=== PATIENT | female | born 1930 | race Caucasian/White ===

== ENCOUNTER 2018-06-24 18:00 | Inpatient (IN) ==
[2018-06-24] MEDS ORDERED: MethylPREDNISolone Sod Succinate Inj 40 MG/ML Vial IV.PUSH ONE (18:36)
[2018-06-24] MEDS ORDERED: Piperacil/Tazo 2.25 GM Premix 2.25 GM/50 ML PIGGYBACK IV.SIG SCH (18:45)
--- NOTE | 2018-06-24 19:13 | XR ---
EXAM DATE: 06/24/2018 7:08 PM EST AGE/SEX: 88 years / Female INDICATIONS: Shortness of breath. CLINICAL DATA: This is the patient's initial encounter. Patient reports that signs and symptoms have been present for 2 days and indicates a pain score of 0/10. MEDICAL/SURGICAL HISTORY: None. None. COMPARISON: No prior exams available for comparison. FINDINGS: Single AP view the chest. There is prominent volume loss on the right with shift of the mediastinum t o the right and extensive mixed hazy and linear opacity. Mild patchy left lung base opacity. Calcifie d granuloma in the left midlung. Cardiomediastinal silhouette within normal limits. No evidence of pl eural effusion or pneumothorax. CONCLUSION: Volume loss and moderate severity patchy opacity in the right lung is nonspecific. 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 An acute component is also possible. Mild patchy opacity at the left lung base. Electronically signed by: Jagdeep Marti MD Board Certified Radiologist 06/24/2018 7:12 PM EST
[2018-06-24 19:24] LABS: Baso % (Auto) 0.2 % (0.0-2.0); Hemoglobin 13.8 gm/dL (11.6-15.3); Lymph # (Auto) 1.2 th/mm3 (1.0-4.8); Lymph % (Auto) 5.6 % (9.0-44.0); Mean Corpuscular HGB Conc 32.8 % (32.0-36.0); Mean Corpuscular Hemoglobin 32.6 pg (27.0-34.0); Mean Corpuscular Volume 99.4 fL (80.0-100.0); Mean Platelet Volume 8.8 fL (7.0-11.0); Mono # (Auto) 1.9 th/mm3 (0.0-0.9); Mono % (Auto) 9.1 % (0.0-8.0); Neut # (Auto) 17.6 th/mm3 (1.8-7.7); Neut % (Auto) 85.1 % (16.0-70.0); Platelet Count 335 th/mm3 (150-450); Red Blood Count 4.22 mil/mm3 (4.00-5.30); Red Cell Distribution Width 13.4 % (11.6-17.2); White Blood Count 20.7 th/mm3 (4.0-11.0)
--- NOTE | 2018-06-24 19:33 | ED ---
HPI General Chief Complaint: Shortness of Breath/Dyspnea Stated Complaint: vertigo Time Seen by Provider: 06/24/18 18:36 History of Present Illness This patient presents acutely short of breath. Duration is 2 days. She says she is coughing up thick colored phlegm. She is a DNR patient. Symptoms are severe. She arrives critically ill. No alleviating factors. No exacerbating factors. Room air saturations are in the 50s. Patient was given Zosyn 2.25 g IV by ED physician. I spoke with Dr. Turner, her private physician. Cefepime 1 g IV. Zithromax 500 mg IV. Patient will be admitted to [facility] telemetry with oxygen and IV antibiotic. Related Data Home Medications Medication Instructions Recorded Confirmed alprazolam 0.25 mg PO BID PRN 05/19/18 06/24/18 aspirin [Aspir-81] 1 tab PO DAILY 05/19/18 06/24/18 calcium carbonate-vitamin D3 1 tab PO BID 05/19/18 06/24/18 [Calcium 600 + D(3)] cholecalciferol (vitamin D3) 2,000 unit PO DAILY 05/19/18 06/24/18 [Vitamin D3] denosumab [Prolia] 1 % SUBCUT [id number] 05/19/18 06/24/18 folic acid 1 mg PO DAILY 05/19/18 06/24/18 losartan 100 mg PO DAILY 05/19/18 06/24/18 simvastatin 40 mg PO QPM 05/19/18 06/24/18 B-complex with vitamin C [Super B 1 tab PO DAILY 06/24/18 06/24/18 Complex-Vitamin C] biotin 5,000 mcg PO DAILY 06/24/18 06/24/18 calcium citrate-vitamin D3 2 tab PO DAILY 06/24/18 06/24/18 [Citracal + D Maximum] urktjida-[id number]-[id number]-C-odilon-bosw 2 tab PO DAILY 06/24/18 06/24/18 [Osteo Bi-Flex Triple Strength] ibuprofen 200 mg PO Q4-6H PRN 06/24/18 06/24/18 omega 0-qvx-cql-fish oil [Fish Oil] 1,200 mg PO DAILY 06/24/18 06/24/18 Allergies Allergy/AdvReac Type Severity Reaction Status Date / Time No Known Allergies Allergy Verified 06/24/18 19:06 Review of Systems ROS: all other systems reviewed are negative [facility] Medical History Medical History Anxiety (Acute) Colonic polyp (Acute) Depression (Acute) Diverticulosis (Acute) FH: carotid endarterectomy (Acute) H/O: lung cancer (Acute) Hypertension (Acute) Osteoporosis (Acute) Stroke (Acute) Social History Social History Substance History: No History of Abuse Smoking Status: Former smoker How Often Do You Have a Drink Containing Alcohol: 2 to 4 times a month Recent Travel in [facility] within the Last 8 Weeks: No Recent Out of Country Travel within the Last 8 Weeks: No Immunization History Tetanus Immunization: Unsure Exam Narrative Exam Narrative: GENERAL: Thin elderly well-developed patient in respiratory distress. SKIN: Focused skin assessment reveals no rash and nodules. Skin is Warm and dry. HEAD: Atraumatic. Normocephalic. EYES: Pupils equal and round. No scleral icterus. No injection or drainage. ENT: No nasal bleeding or discharge. Mucous membranes pink and moist. NECK: Trachea midline. No JVD. CARDIOVASCULAR: Regular rate and rhythm. No murmur appreciated. Tachycardic in the 120s RESPIRATORY: Positive accessory muscle use. Diminished breath sounds throughout . Breath sounds equal bilaterally. GASTROINTESTINAL: Abdomen soft, non-tender, nondistended. Hepatic and splenic margins not palpable. MUSCULOSKELETAL: No obvious deformities. No clubbing. No cyanosis. No edema. NEUROLOGICAL: Awake and alert. No obvious cranial nerve deficits. Motor grossly within normal limits. Normal speech. PSYCHIATRIC: Appropriate mood and affect; insight and judgment normal. Course Initial Documented Vital Signs Pulse Rate 130 H 06/24/18 18:17 Respiratory Rate 30 H 06/24/18 18:17 Blood Pressure 161/83 H 06/24/18 18:17 Pulse Oximetry 52 L 06/24/18 18:17 Last Documented Vital Signs Temperature 99.7 F H 06/24/18 18:23 Pulse Rate 110 H 06/24/18 18:46 Respiratory Rate 24 06/24/18 18:46 Blood Pressure 161/83 H 06/24/18 18:23 Pulse Oximetry 96 06/24/18 19:38 Medical Decision Making MDM Narrative Medical decision making narrative: Workup ordered in case checked at the Dr. Roach as the patient came in right before shift end. 3-year-old white1:06 PM. Patient was seen by ED physician and signed out to me. Medical Screen Exam Complete: Yes Emergency Medical Condition: Yes Lab Data Lab results reviewed: Yes I reviewed the patient's lab results. Result diagrams: 06/24/18 18:53 06/24/18 18:53 Lab Results 06/24/18 06/24/18 Range/Units 18:53 18:53 WBC 20.7 H (4.0-11.0) th/mm3 RBC 4.22 (4.00-5.30) mil/mm3 Hgb 13.8 (11.6-15.3) gm/dL Hct 42.0 (35.0-46.0) % MCV 99.4 (80.0-100.0) fL MCH 32.6 (27.0-34.0) pg MCHC 32.8 (32.0-36.0) % RDW 13.4 (11.6-17.2) % Plt Count 335 (150-450) th/mm3 MPV 8.8 (7.0-11.0) fL Prelim Diff (Auto) Slide review pending Neut % (Auto) 85.1 H (16.0-70.0) % Lymph % (Auto) 5.6 L (9.0-44.0) % [place] % (Auto) 9.1 H (0.0-8.0) % Eos % (Auto) 0.0 (0.0-4.0) % Baso % (Auto) 0.2 (0.0-2.0) % Neut # (Auto) 17.6 H (1.8-7.7) th/mm3 Lymph # (Auto) 1.2 (1.0-4.8) th/mm3 [place] # (Auto) 1.9 H (0.0-0.9) th/mm3 Eos # (Auto) 0.0 (0.0-0.4) th/mm3 Baso # (Auto) 0.0 (0.0-0.2) th/mm3 WBC Differential . Diff Scan Auto diff confirmed Differential Comment . Sodium 139 (136-145) meq/L Potassium 4.3 (3.5-5.1) meq/L Chloride 101 (98-107) meq/L Carbon Dioxide 30.2 (21.0-32.0) meq/L Anion Gap 8 (5-15) meq/L BUN 40 H (7-18) mg/dL Creatinine 1.25 H (0.50-1.00) mg/dL Estimated GFR 41 L (>89) mL/min Random Glucose 193 H (74-106) mg/dL Calcium 10.1 (8.5-10.1) mg/dL Total Bilirubin 0.6 (0.2-1.0) mg/dL AST 39 H (15-37) U/L ALT 41 (10-53) U/L Alkaline Phosphatase 95 (45-117) U/L Total Protein 7.1 (6.4-8.2) g/dL Albumin 2.9 L (3.4-5.0) g/dL Imaging Data Attestation: I personally reviewed and interpreted this imaging study as follows : Radiologist's impression: Chest X-Ray 06/24/18 18:37 CONCLUSION: Volume loss and moderate severity patchy opacity in the right lung is nonspecific. May represent chronic lung disease/scarring. An acute component is also possible. Mild patchy opacity at the left lung base. Discharge Plan Discharge Disposition Patient Disposition: ED Admit(ED Internal Use Only) Discharge Order Discharge Orders: ED Use Only Admit Order (Routine); Ordered 06/24/18 Ordered By: Eduardo Roach Discharge Details Diagnosis: Community acquired pneumonia, Hypoxemia, Renal insufficiency Physicians Team ED Provider: Ruben Villalba Primary Care Provider: Claude Turner Rxs /Orders / Referrals /Forms Prescriptions: No Action ibuprofen 200 mg Capsule 200 mg PO Q4-6H PRN (Reason: Pain) RF: 0 B-complex with vitamin C [Super B Complex-Vitamin C] Tablet 1 tab PO DAILY RF: 0 calcium citrate-vitamin D3 [Citracal + D Maximum] 315-250 mg-unit Tablet 2 tab PO DAILY RF: 0 akfiaysr-xytm-jnb0-C-odilon-bosw [Osteo Bi-Flex Triple Strength] 750 mg-644 mg- 30 mg-1 mg Tablet 2 tab PO DAILY RF: 0 omega 9-bub-bmi-fish oil [Fish Oil] 1,000 mg (120 mg-180 mg) Capsule 1,200 mg PO DAILY RF: 0 biotin 5,000 mcg PO DAILY RF: 0 calcium carbonate-vitamin D3 [Calcium 600 + D(3)] 600 mg(1,500mg) -200 unit Tablet 1 tab PO BID RF: 0 aspirin [Aspir-81] 81 mg Tablet,Delayed Release (Dr/Ec) 1 tab PO DAILY RF: 0 simvastatin 40 mg Tablet 40 mg PO QPM RF: 0 alprazolam 0.25 mg Tablet 0.25 mg PO BID PRN (Reason: Anxiety) RF: 0 folic acid 1 mg Tablet 1 mg PO DAILY RF: 0 losartan 100 mg Tablet 100 mg PO DAILY RF: 0 cholecalciferol (vitamin D3) [Vitamin D3] 2,000 unit Tablet 2,000 unit PO DAILY RF: 0 denosumab [Prolia] 60 mg/mL Syringe 1 % subcut [id number] RF: 0 Discharge Interventions Interventions: Vital Signs Last Done: 06/24/18 18:23 Status ED Status: Admitted Patient
[2018-06-24 19:43] LABS: Albumin 2.9 g/dL (3.4-5.0); Anion Gap 8 meq/L (5-15); Aspartate Aminotransferase 39 U/L (15-37); Blood Urea Nitrogen 40 mg/dL (7-18); Calcium 10.1 mg/dL (8.5-10.1); Carbon Dioxide 30.2 meq/L (21.0-32.0); Chloride 101 meq/L (98-107); Glomerular Filtration Rate 41 mL/min (>89); Glucose,Random 193 mg/dL (74-106); Potassium 4.3 meq/L (3.5-5.1); Sodium 139 meq/L (136-145)
[2018-06-24 19:44] LABS: Alanine Aminotransferase 41 U/L (10-53)
[2018-06-24 19:47] LABS: Alkaline Phosphatase 95 U/L (45-117); Total Protein 7.1 g/dL (6.4-8.2)
[2018-06-24] MEDS ORDERED: Azithromycin Inj 500 MG in Sodium Chlor 0.9% Inj 250 ML IV.SIG ONE (21:08)
[2018-06-24] MEDS ORDERED: Bisacodyl 10 MG Supp RECTAL PRN (22:08)
[2018-06-24] MEDS ORDERED: Acetaminophen 325 MG Tablet PO PRN (22:08)
[2018-06-24] MEDS ORDERED: Sod Chloride 0.9% Inj 1,000 ML IV.SIG SCH (22:23)
[2018-06-24] MEDS: Sod Chloride 0.9% Inj 1,000 ML IV.CONT SCH (23:27)
--- NOTE | 2018-06-25 00:43 | MH ---
cc: Claude Turner MD DATE OF ADMISSION: 06/24/2018 ADMITTING DIAGNOSIS: Hypoxemia pneumonia. HISTORY OF PRESENT ILLNESS: This 88-year-old white female well known to the undersigned physician has a history of COPD and lung cancer. She underwent SBRT for lung cancer over 5 years ago and has had no evidence of any recurrence. The patient presented to the emergency department this evening complaining of shortness of breath and was found to have an oxygen saturation of 52%. The patient reports that she was not feeling well yesterday, but there were no specific symptoms. She states that she has little recollection of the last 24 hours. She denies any URI symptoms including no sore throat, nasal congestion, head congestion, persistent cough, or sputum production. She had no fever or chills. She states that her bowels have been moving well. She has had no diarrhea, constipation, abdominal pain. Her appetite has been chronically fair and she states it had not changed as much as she can remember. The patient normally has normal oxygen saturations and has never required supplemental oxygen. She denies any lateralizing deficits, any headaches, any visual changes, any nausea or vomiting. 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 She has hypertension, hyperlipidemia, depression, anxiety, history of colonic polyp. She had lung cancer in 2012, for which she underwent SBRT. She had 1 recurrence, which was treated and she has had no subsequent evidence of any recurrent disease. The patient has carotid stenosis, diverticulosis, and osteoporosis. PAST SURGICAL HISTORY: Significant for a carotid endarterectomy and she is status post bilateral cataract removal with lens implants. CURRENT MEDICATIONS: Calcium with vitamin D 600 mg twice daily, simvastatin 40 mg daily, alprazolam 0.25 mg 1/2 to 1 tablet 4 times a day as needed for anxiety, Prolia inject 60 mg/mL 1 mL subcutaneously every 6 months, aspirin 81 mg daily, vitamin D 2000 IU daily, losartan 100 mg daily, folic acid 1 mg daily. ALLERGIES: SHE HAS NO KNOWN DRUG ALLERGIES. FAMILY HISTORY: Noncontributory. SOCIAL HISTORY: She is . She lives alone. She occasionally consumes alcohol on a social basis. She smoked 1 pack of cigarettes a day for over 50 years, but quit in 1999. She is retired. She has no local family. IMMUNIZATION HISTORY: She received an influenza immunization in March 2018 at [facility] through the auxiliary, and pneumococcal vaccination was performed on 02/26/2015. REVIEW OF SYSTEMS: Unobtainable except as above, due to the patient's memory deficit. PHYSICAL EXAMINATION: VITAL SIGNS: Upon arrival to the emergency department, the patient's blood pressure was 161/83 with a heart rate of 130, respirations were 30, temperature was 99.7 degrees Fahrenheit, oxygen saturation was 52% on room air. At the current time, the patient's blood pressure is 136/60 with a heart rate of 120, respirations are 30, oxygen saturation is 96% on a nonrebreather mask. GENERAL: This is a thin, frail, elderly white female lying in bed, appearing fatigued, in hope-dg-cauuohxo respiratory distress. HEENT: The pupils are equal, round, and reactive to light. Extraocular movements are intact. Sclerae are anicteric. There are bilateral lens implants in place. Mouth and throat reveal moist mucous membranes. No erythema, exudates, and dentition is good. NECK: Supple without lymphadenopathy, JVD, bruits, or thyromegaly. CARDIOVASCULAR: Regular rate and rhythm with tachycardia. LUNGS: Reveal poor air exchange bilaterally. There are expiratory wheezes. No definite rales are heard. There are a few upper airway rhonchi when the patient is coughing. ABDOMEN: Soft, nontender, nondistended with bowel sounds present. No masses palpable hepatosplenomegaly. GENITOURINARY AND RECTAL: Deferred. LOWER EXTREMITIES: Reveal no edema, no calf tenderness. No Lottie sign. 2+ pulses. SKIN: Warm and dry. NEUROLOGIC: The patient is awake and alert. She is oriented to person, place, but not to time. Speech is intact. Cranial nerves are intact. No lateralizing deficits. She does have some short-term memory deficits of the events of the last 24 hours, which is unusual for this patient. No delusions or hallucinations. She is anxious at this time. LABORATORY DATA: Comprehensive metabolic profile significant for a BUN of 40, creatinine of 1.25, glucose was 193. AST mildly elevated at 39, but ALT of 41, albumin low at 2.9. The white blood cell count 20.7 with hemoglobin 13.8, hematocrit 40.2, platelet count was 335,000. White blood count differential showed 85.1 polys, 5.6 lymphocytes, and 9.1 monocytes. DIAGNOSTIC DATA: The chest x-ray reveals volume loss and moderate-severe patchy opacity in the right lung, which is nonspecific. This may represent chronic lung disease and scarring. An acute component is also possible. Mild patchy opacity in the left lung base. ASSESSMENT AND PLAN: 1. This 88-year-old white female presented with hypoxemia, and chest x-ray findings are suspicious for pneumonia. The patient also had a low-grade temperature elevation at this time. She received 3 nebulizer treatments in the emergency department and was given intravenous Solu-Medrol. Her oxygen saturations have improved, but she remains on 100% nonrebreather, which we will plan to admit the patient to medical/surgical bed with telemetry. She will be placed on intravenous antibiotics, intravenous steroids, and nebulizer treatments. We will provide supplemental oxygen and we will wean the oxygen as tolerated. The patient has previously expressed that she is NO CODE and has no desire to be intubated nor does she wish any aggressive resuscitation if cardiac arrest occurs. She will be made NO CODE. Blood cultures were obtained. We will follow up blood cultures and adjust antibiotic coverage as needed. The patient is not coughing at this time. If she begins to produce sputum, we will try to obtain a sputum specimen for culture. 2. Chronic obstructive pulmonary disease. The patient's chronic obstructive pulmonary disease has been exacerbated by the pneumonia. She also has a history of lung cancer. Previous x-rays have revealed a chronic patchy opacity in the right lung santos. We will obtain a CT scan of the chest to better delineate between chronic scarring versus acute infiltrate. 3. Acute renal failure. The patient's BUN and creatinine are significantly higher than they normally are. Her creatinine tends to run around 0.75. I suspect she has intravascular volume depletion from the acute illness. We will provide her with intravenous fluids and follow her renal function closely. 4. History of anxiety. We will provide the patient with alprazolam as needed. She does not tolerate selective serotonin reuptake inhibitors or serotonin and norepinephrine reuptake inhibitors, which were tried in the past with significant side effects. 5. Carotid stenosis. The patient did recently undergo a CT angiography of the carotid arteries, which showed high-grade stenosis in the right internal carotid artery. She will continue with aspirin 81 mg daily. Once the respiratory status has improved, we will need to consider further evaluation by vascular surgery. 6. History of cerebrovascular accident. The patient has had essentially no residual deficits. We will continue with the aspirin at 81 mg daily. 7. Hyperlipidemia. Continue with simvastatin 40 mg daily. 8. History of osteoporosis. We will hold calcium and vitamin D for now and resume when the patient is more stable. 9. Hypertension. The patient normally receives losartan. We will continue with losartan at 100 mg daily. Monitor blood pressure. Adjust medication as needed. 10. Tachycardia. The patient has a sinus tachycardia, likely due to the acute illness. She has intravascular volume depletion as well. We will provide an intravenous fluid bolus, which should help with the heart rate. We will avoid use of beta blockers due to the possibility of exacerbating her bronchospasm. If necessary, provide additional medication to control heart rate. Claude Turner MD JRM/eb/do , 10:39 PM , 10:56 PM
[2018-06-25] MEDS: MethylPREDNISolone Sod Succinate Inj 40 MG/ML Vial IV.PUSH SCH ×3 (05:11→21:16)
[2018-06-25 06:39] LABS: Eos % (Auto) 0.1 % (0.0-4.0); Hematocrit 34.2 % (35.0-46.0); Lymph # (Auto) 0.7 th/mm3 (1.0-4.8); Mean Corpuscular Hemoglobin 34.1 pg (27.0-34.0); Mean Corpuscular Volume 97.3 fL (80.0-100.0); Mean Platelet Volume 8.5 fL (7.0-11.0); Mono # (Auto) 0.4 th/mm3 (0.0-0.9); Mono % (Auto) 2.7 % (0.0-8.0); Neut # (Auto) 15.3 th/mm3 (1.8-7.7); Neut % (Auto) 93.2 % (16.0-70.0); Platelet Count 249 th/mm3 (150-450); Red Blood Count 3.52 mil/mm3 (4.00-5.30); White Blood Count 16.4 th/mm3 (4.0-11.0)
[2018-06-25 07:04] LABS: Calcium 8.9 mg/dL (8.5-10.1); Carbon Dioxide 30.3 meq/L (21.0-32.0)
[2018-06-25] MEDS ORDERED: Dextrose 50% in Water 50 ML Vial IV.PUSH PRN (09:56)
[2018-06-25] MEDS: Sod Chloride 0.9% Inj 1,000 ML IV.CONT SCH ×2 (09:56→20:40)
[2018-06-25] MEDS ORDERED: ALPRAZolam 0.25 MG Tablet PO PRN (10:15)
[2018-06-25] MEDS: Docusate Sodium 100 MG Capsule PO SCH ×2 (11:42→20:38)
[2018-06-25] MEDS: Insulin NovoLOG Aspart Correctional Sugar Inj SQ SCH ×3 (12:42→20:38)
--- NOTE | 2018-06-25 13:16 | CT ---
EXAM DATE: 06/25/2018 1:10 PM EST AGE/SEX: 88 years / Female INDICATIONS: Hypoxemia, Low Grade Fever CLINICAL DATA: This is the patient's initial encounter. Patient reports that signs and symptoms have been present for 1 day and indicates a pain score of 0/10. MEDICAL/SURGICAL HISTORY: Carcinoma, lung. Hypertension. Chronic obstructive pulmonary disease. N one. RADIATION DOSE: 3.36 CTDI (mGy) COMPARISON: No prior exams available for comparison. TECHNIQUE: Multiple contiguous axial images were obtained through the chest without contrast. Image s were obtained in suspended respiration using multiple row detector helical technique. Using automa sarah exposure control and adjustment of the mA and/or kV according to patient size, radiation dose was kept as low as reasonably achievable to obtain optimal diagnostic quality images. DICOM format imag e data is available electronically for review and comparison. FINDINGS: Patient has a history of lung carcinoma. There is a masslike density in the right middle lobe measure s 4.4 cm in size with surrounding parenchymal infiltrate. There is a separate area of spiculated dens ity right upper lobe anteromedial measures 1.3 cm in size. Additional areas of parenchymal infiltrate s are seen in right lower lobe, left lower lobe part of them have the appearance of scar. There is al so slight scarring within lingula. There are small lymph nodes within the mediastinum most likely cal ign. There is no appreciable pleural effusion for technique. Heart and mediastinum are unremarkable. There is old rib fracture on the right. Coronary artery calcifications are seen typically seen with coronary artery disease and clinical correlation and evaluation is suggested. Chronic vascular ather osclerotic calcifications are seen involving the aorta. Extensive COPD is seen. CONCLUSION: There is a mass in right middle lobe could be malignant or possibly posttreatment change with a separate spiculated mass right upper lobe anteromedial suspicious for underlying malignancy. A dditional parenchymal infiltrates are seen bilaterally may represent pneumonia. Electronically signed by: Mary Jane Licona MD Board Certified Radiologist 06/25/2018 1:15 PM EST
--- NOTE | 2018-06-25 14:16 | ECG ---
Date Performed: 06/24/2018 Time Performed: 18:26:27 PTAGE: 88 years EKG: SINUS TACHYCARDIA LEFT ATRIAL ENLARGEMENT BORDERLINE RIGHT AXIS DEVIATION LOW QRS VOLTAGE I N EXTREMITY LEADS Compared to previous tracing, HR is faster, otherwise no significant change ABNORMA L ECG PREVIOUS TRACING : 05/06/2000 14.00 DOCTOR: Jimenez Hong Interpretating Date/Time 06/25/2018 14:15:46
[2018-06-25] MEDS ORDERED: Azithromycin Inj 500 MG in Sodium Chlor 0.9% Inj 250 ML IV.SIG SCH (19:00)
[2018-06-26] MEDS: MethylPREDNISolone Sod Succinate Inj 40 MG/ML Vial IV.PUSH SCH ×3 (05:02→22:20)
[2018-06-26 05:36] LABS: Hematocrit 35.6 % (35.0-46.0); Hemoglobin 11.5 gm/dL (11.6-15.3); Lymph # (Auto) 0.6 th/mm3 (1.0-4.8); Lymph % (Auto) 2.6 % (9.0-44.0); Mean Corpuscular HGB Conc 32.5 % (32.0-36.0); Mean Corpuscular Hemoglobin 32.4 pg (27.0-34.0); Mean Platelet Volume 8.2 fL (7.0-11.0); Mono # (Auto) 0.8 th/mm3 (0.0-0.9); Mono % (Auto) 3.4 % (0.0-8.0); Neut # (Auto) 20.6 th/mm3 (1.8-7.7); Platelet Count 271 th/mm3 (150-450); Red Blood Count 3.56 mil/mm3 (4.00-5.30); Red Cell Distribution Width 13.3 % (11.6-17.2); White Blood Count 21.9 th/mm3 (4.0-11.0)
[2018-06-26 06:04] LABS: Calcium 8.3 mg/dL (8.5-10.1); Carbon Dioxide 27.7 meq/L (21.0-32.0)
[2018-06-26 06:18] LABS: Lymphocytes 1 % (9-44); Monocytes 2 % (0-8); Platelet Estimate Normal (Normal); Platelet Morphology Normal (Normal)
[2018-06-26] MEDS: Insulin NovoLOG Aspart Correctional Sugar Inj SQ SCH ×4 (07:39→20:24)
--- NOTE | 2018-06-26 09:19 | P.PN ---
Subjective Interval history: The patient reports that she is comfortable on oxygen at 3 L/min per nasal cannula. She is having some moist cough but no sputum production. Appetite is been fair. No bowel movement since prior to admission. Has not been out of bed. Denies any chest pain, palpitations, lightheadedness or dizziness. Active Medications Generic Name Dose Route Start Last Admin Trade Name Freq PRN Reason Stop Dose Admin Acetaminophen 650 mg 06/24/18 22:08 Tylenol PO Q4H PRN Temp > 100.4 Al Hydroxide/Mg Hydroxide 30 ml 06/24/18 22:08 Milk Of Magnesia Liq PO Q12H PRN Mild Constipation Albuterol 1 ampul 06/24/18 22:30 06/26/18 09:01 Duoneb Neb (Ally) NEB 1 ampul Q6HR NEB ALLY Administration Alprazolam 0.25 mg 06/25/18 10:15 Xanax PO Q8H PRN ANXIETY AND/OR AGITATION Aspirin 81 mg 06/25/18 09:00 06/25/18 09:55 Ecotrin PO 81 mg DAILY ALLY Administration Bisacodyl 10 mg 06/24/18 22:08 Dulcolax Supp RECTAL DAILY PRN SEVERE CONSITIPATION Dextrose 50 ml 06/25/18 09:56 D50w Vial IV.PUSH UNSCH PRN PER HYPOGLYCEMIA PROTOCOL Docusate Sodium 100 mg 06/25/18 10:30 06/25/18 20:38 Colace PO 100 mg BID ALLY Administration Glucagon 1 mg 06/25/18 09:56 Glucagon Inj OTHER PRN PRN for Hypoglycemia Protocol Sodium Chloride 1,000 mls @ 75 mls/hr 06/24/18 22:15 06/25/18 20:40 Ns Inj IV.CONT 75 mls/hr .[id number] ALLY Administration Azithromycin 500 mg/ Sodium 250 mls @ 250 mls/hr 06/25/18 19:00 06/25/18 19: 30 Chloride IV.SIG Infused Q24H LALY Infusion Cefepime HCl 1,000 mg/ Sodium 100 mls @ 200 mls/hr 06/25/18 09:00 06/25/18 22 :55 Chloride IV.SIG Infused Q12H [facility]Y Infusion Insulin Aspart 0 unit 06/25/18 12:00 06/26/18 07:39 Novolog Insulin Correctional Sugar Inj SQ Not Given ACHS ALLY Protocol Losartan Potassium 100 mg 06/24/18 22:45 06/25/18 09:55 Cozaar PO 100 mg DAILY ALLY Administration Methylprednisolone Sodium Succinate 40 mg 06/25/18 06:00 06/26/18 05:02 Solumedrol Inj IV.PUSH 40 mg Q8HR ALLY Administration Pravastatin Sodium 80 mg 06/25/18 18:00 06/25/18 18:08 Pravachol PO 80 mg QPM ALLY Administration Sennosides 17.2 mg 06/24/18 22:08 Senokot PO Q12H PRN Moderate Constipation Sodium Chloride 2 ml 06/25/18 09:00 06/25/18 20:38 Ns Flush IV.FLUSH Not Given BID ALLY Sodium Chloride 2 ml 06/24/18 22:08 Ns Flush IV.FLUSH PRN PRN FLUSH AFTER USING IV ACCESS Physical Exam Vital signs: Vital Signs 06/25/18 09:38 06/25/18 12:00 06/25/18 16:00 Temperature 97.6 F 97.6 F Pulse Rate 93 H 107 H 103 H Respiratory Rate 16 15 Blood Pressure 105/54 L 123/60 Pulse Oximetry 95 91 L 90 L 06/25/18 16:46 06/25/18 20:00 06/25/18 20:36 Temperature 97.8 F Pulse Rate 101 H 102 H 100 H Respiratory Rate 16 22 18 Blood Pressure 97/54 L Pulse Oximetry 95 95 06/26/18 00:00 06/26/18 03:32 06/26/18 04:00 Temperature 97.2 F L 97.4 F L Pulse Rate 99 H 76 96 H Respiratory Rate 20 14 22 Blood Pressure 93/51 L 103/53 L Pulse Oximetry 91 L 95 06/26/18 09:03 Temperature Pulse Rate 101 H Respiratory Rate 16 Blood Pressure Pulse Oximetry 93 L Intake & Output 06/25/18 06/26/18 06/26/18 18:59 06:59 18:59 Intake Total 810 / 810 1350 / 1350 Balance 810 / 810 1350 / 1350 Weight 101 lb 6.602 oz Intake: IV 810 / 810 1350 / 1350 NS Inj 1,000 ML @ 75 mls/hr IV. 710 / 710 1000 / 1000 CONT .[id number] [facility] Rx#:[id number] Azithromycin Inj 500 MG In NS 250 / 250 Inj 250 ML @ 250 mls/hr IV.SIG Q24H [facility] Rx#:[id number] Maxipime Inj 1,000 MG In NS Inj 100 / 100 100 / 100 100 ML @ 200 mls/hr IV.SIG Q12H [facility] Rx#:[id number] - Constitutional no acute distress - Routine Neck Exam Present: supple Comments: No lymphadenopathy, JVD or thyromegaly. Trachea midline - Routine Respiratory Exam Comments: Moderately severe reduced air exchange bilaterally without wheezes, rhonchi or rales - Routine Cardiovascular Exam Present: RRR - Routine Abdominal Exam Present: soft Comments: Mild distention, bowel sounds present, no masses, no HSM, no CVAT - Routine Extremities Exam Comments: No calf tenderness or Homans sign. No edema. Results - Labs CBC & Chem 7: 06/26/18 05:00 06/26/18 05:00 Laboratory Results - last 24 hr 06/25/18 06/25/18 06/25/18 11:44 17:14 19:35 WBC RBC Hgb Hct MCV MCH MCHC RDW Plt Count MPV Prelim Diff (Auto) Neut % (Auto) Lymph % (Auto) [place] % (Auto) Eos % (Auto) Baso % (Auto) Neut # (Auto) Lymph # (Auto) [place] # (Auto) Eos # (Auto) Baso # (Auto) WBC Differential Seg Neuts % (Manual) Band Neuts % (Manual) Lymphocytes % (Manual) Monocytes % (Manual) Abs Neuts (Manual) Differential Comment Platelet Estimate Platelet Morphology Sodium Potassium Chloride Carbon Dioxide Anion Gap BUN Creatinine Estimated GFR POC Glucose 158 H 201 H 163 H Random Glucose Calcium 06/26/18 06/26/18 06/26/18 05:00 05:00 07:36 WBC 21.9 H RBC 3.56 L Hgb 11.5 L Hct 35.6 MCV 100.0 MCH 32.4 MCHC 32.5 RDW 13.3 Plt Count 271 MPV 8.2 Prelim Diff (Auto) Slide review pending Neut % (Auto) 94.0 H Lymph % (Auto) 2.6 L [place] % (Auto) 3.4 Eos % (Auto) 0.0 Baso % (Auto) 0.0 Neut # (Auto) 20.6 H Lymph # (Auto) 0.6 L [place] # (Auto) 0.8 Eos # (Auto) 0.0 Baso # (Auto) 0.0 WBC Differential Manual diff final Seg Neuts % (Manual) 84 H Band Neuts % (Manual) 13 H Lymphocytes % (Manual) 1 L Monocytes % (Manual) 2 Abs Neuts (Manual) 21.2 H Differential Comment . Platelet Estimate Normal Platelet Morphology Normal Sodium 144 Potassium 4.0 Chloride 111 H Carbon Dioxide 27.7 Anion Gap 5 BUN 45 H Creatinine 0.84 Estimated GFR 64 L POC Glucose 128 H Random Glucose 124 H Calcium 8.3 L Microbiology 06/24/18 18:48 Blood - Peripheral Aerobic Blood Culture - Preliminary No growth in 1 day 06/24/18 18:48 Blood - Peripheral Anaerobic Blood Culture - Preliminary No growth in 1 day 06/24/18 18:53 Blood - Peripheral Aerobic Blood Culture - Preliminary No growth in 1 day 06/24/18 18:53 Blood - Peripheral Anaerobic Blood Culture - Preliminary No growth in 1 day - Imaging Impressions Chest CT 06/25/18 00:00 CONCLUSION: There is a mass in right middle lobe could be malignant or possibly posttreatment change with a separate spiculated mass right upper lobe anteromedial suspicious for underlying malignancy. Additional parenchymal infiltrates are seen bilaterally may represent pneumonia. Assessment and Plan - Assessment (1) Pneumonia Code(s): J18.9 - Pneumonia, unspecified organism Status: Acute Plan: The CT scan of the chest revealed infiltrates within the right lung, however, evidence of possible recurrence of lung cancer. White blood count remains elevated despite IV antibiotics. Will consult infectious disease for assistance with management of antibiotics. Continue with nebulizer treatments and steroids. (2) COPD with acute exacerbation Code(s): J44.1 - Chronic obstructive pulmonary disease with (acute) exacerbation Status: Acute Plan: Continue with steroids and nebulizer treatments. Continue with submental oxygen and wean as tolerated (3) Personal history of malignant neoplasm of lung Code(s): Z85.118 - Personal history of other malignant neoplasm of bronchus and lung Status: Chronic Plan: CT scan is suspicious for recurrent malignancy. I have discussed the findings with the patient. She will need further evaluation including possible biopsy but will need to improve pneumonia first. She previously underwent SBRT several years ago for the malignancy. (4) Hypertension Code(s): I10 - Essential (primary) hypertension Status: Chronic Plan: Blood pressure is low. Discontinue losartan. Resume antihypertensive therapy if needed (5) Hyperlipidemia Code(s): E78.5 - Hyperlipidemia, unspecified Status: Acute Plan: Continue statin therapy (6) Altered mental status Code(s): R41.82 - Altered mental status, unspecified Status: Acute Plan: The patient has had new onset short-term memory deficits which could be related to acute delirium, however, will obtain MRI of the brain to rule out the possibility of metastatic disease affecting mental status. (7) Carotid stenosis Code(s): I65.29 - Occlusion and stenosis of unspecified carotid artery Status : Chronic Plan: The patient has a history of high-grade carotid stenosis which was recently identified by CTA. She will continue on aspirin therapy. Plan was for vascular surgery consultation but will need to wait until patient is medically improved. (8) Hyperglycemia Code(s): R73.9 - Hyperglycemia, unspecified Status: Acute Plan: Blood sugars are elevated. Patient has a history of impaired fasting glucose blood glucose levels are higher due to use of steroids and acute illness. Receiving sliding scale insulin as needed. (1) Pneumonia Qualifiers: Pneumonia type: due to unspecified organism Laterality: right Lung location : unspecified part of lung Qualified Code(s): J18.9 - Pneumonia, unspecified organism (4) Hypertension Qualifiers: Hypertension type: essential hypertension Qualified Code(s): I10 - Essential (primary) hypertension (5) Hyperlipidemia Qualifiers: Hyperlipidemia type: mixed hyperlipidemia Qualified Code(s): E78.2 - Mixed hyperlipidemia (6) Altered mental status Qualifiers: Altered mental status type: unspecified Qualified Code(s): R41.82 - Altered mental status, unspecified
[2018-06-26] MEDS: Docusate Sodium 100 MG Capsule PO SCH ×2 (09:59→20:29)
--- NOTE | 2018-06-26 13:01 | P.CONID ---
History of Present Illness Service: Infectious Disease Consult date: 06/26/18 Requesting Physician: Claude Turner Reason for Consult: Evaluation and Mment of Persistent leucocytosis, Pneumonia Primary Care Provider: Claude Turner MD History of Present Illness: is a 88 y/o CM with PMHx of chronic smoking, active smoker, Past history of Lung cancer s/p treatment at [facility] (radiation plus/- chemotherapy) in 2010. She was reportedly in remission until recently when her CXRs were reported as abnormal in the right side of imaging.She had a PET scan which was abnormal as well. She reports she has been told she has COPD but is not on home oxygen. She reports being active until Feb 2018 and plays golf. She had right shoulder bursitis due to which she slowed down. Upon discussion with she has lost some weight over last few months but her appetite seems ok. 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 She was last seen by Oncology at [facility] possibly in 2012. She denies any cough with expectoration, Chest pain. She denies any fever or night sweats. she denies exposure to any sick people. ID consulted for evaluation and Mment of Pneumonia. Review of Systems All other systems reviewed negative except as [facility] - History History Provided By: Patient, Medical Record - Medical History Medical History: Medical History (Last Reviewed 06/27/18 @ 08:50 by Fang Bob) Anxiety Colonic polyp Depression Diverticulosis FH: carotid endarterectomy H/O: lung cancer Hypertension Osteoporosis Stroke - Tobacco History Second Hand Smoke Exposure: No Smoking Status: Former smoker - Alcohol History How Often Do You Have a Drink Containing Alcohol: Monthly or less - Substance Use History Substance History: No History of Abuse - Travel History Recent Travel in the [place] Within the Last 8 Weeks: No Recent Travel Out of the Country Within the Last 8 Weeks: No - Immunization History Tetanus Immunization: Unsure Medications and Allergies Active Medications: Active Medications Acetaminophen (Tylenol) 650 mg PO Q4H PRN PRN Reason: Temp > 100.4 Al Hydroxide/Mg Hydroxide (Milk Of Magnnash Liq) 30 ml PO Q12H PRN PRN Reason: Mild Constipation Albuterol (Duoneb Neb (Ally)) 1 ampul NEB Q6HR NEB ALLY Last Admin: 06/26/18 09:01 Dose: 1 ampul Alprazolam (Xanax) 0.25 mg PO Q8H PRN PRN Reason: ANXIETY AND/OR AGITATION Aspirin (Ecotrin) 81 mg PO DAILY [facility] Last Admin: 06/26/18 09:59 Dose: 81 mg Bisacodyl (Dulcolax Supp) 10 mg RECTAL DAILY PRN PRN Reason: SEVERE CONSITIPATION Dextrose (D50w Vial) 50 ml IV.PUSH UNSCH PRN PRN Reason: PER HYPOGLYCEMIA PROTOCOL Docusate Sodium (Colace) 100 mg PO BID [facility] Last Admin: 06/26/18 09:59 Dose: 100 mg Glucagon (Glucagon Inj) 1 mg OTHER PRN PRN PRN Reason: for Hypoglycemia Protocol Sodium Chloride (Ns Inj) 1,000 mls @ 75 mls/hr IV.CONT .[id number] [facility] Last Admin: 06/25/18 20:40 Dose: 75 mls/hr Azithromycin 500 mg/ Sodium (Chloride) 250 mls @ 250 mls/hr IV.SIG Q24H [facility] Last Infusion: 06/25/18 19:30 Dose: Infused Cefepime HCl 1,000 mg/ Sodium (Chloride) 100 mls @ 200 mls/hr IV.SIG Q12H [facility] Last Infusion: 06/26/18 10:43 Dose: Infused Insulin Aspart (Novolog Insulin Correctional Sugar Inj) 0 unit SQ ACHS [facility]; Protocol Last Admin: 06/26/18 07:39 Dose: Not Given Methylprednisolone Sodium Succinate (Solumedrol Inj) 40 mg IV.PUSH Q8HR [facility] Last Admin: 06/26/18 05:02 Dose: 40 mg Pravastatin Sodium (Pravachol) 80 mg PO QPM [facility] Last Admin: 06/25/18 18:08 Dose: 80 mg Sennosides (Senokot) 17.2 mg PO Q12H PRN PRN Reason: Moderate Constipation Sodium Chloride (Ns Flush) 2 ml IV.FLUSH BID [facility] Last Admin: 06/26/18 10:02 Dose: Not Given Sodium Chloride (Ns Flush) 2 ml IV.FLUSH PRN PRN PRN Reason: FLUSH AFTER USING IV ACCESS Allergies Allergy/AdvReac Type Severity Reaction Status Date / Time No Known Allergies Allergy Verified 06/24/18 19:06 Home Medications Medication Instructions Recorded Confirmed Type alprazolam 0.25 mg PO BID PRN 05/19/18 06/24/18 History aspirin [Aspir-81] 1 tab PO DAILY 05/19/18 06/24/18 History calcium carbonate-vitamin D3 1 tab PO BID 05/19/18 06/24/18 History [Calcium 600 + D(3)] cholecalciferol (vitamin D3) 2,000 unit PO DAILY 05/19/18 06/24/18 History [Vitamin D3] denosumab [Prolia] 1 % SUBCUT [id number] 05/19/18 06/24/18 History folic acid 1 mg PO DAILY 05/19/18 06/24/18 History losartan 100 mg PO DAILY 05/19/18 06/24/18 History simvastatin 40 mg PO QPM 05/19/18 06/24/18 History B-complex with vitamin C [Super B 1 tab PO DAILY 06/24/18 06/24/18 History Complex-Vitamin C] biotin 5,000 mcg PO DAILY 06/24/18 06/24/18 History calcium citrate-vitamin D3 2 tab PO DAILY 06/24/18 06/24/18 History [Citracal + D Maximum] [id number] 2 tab PO DAILY 06/24/18 06/24/18 History [Osteo Bi-Flex Triple Strength] ibuprofen 200 mg PO Q4-6H PRN 06/24/18 06/24/18 History omega 0-dxt-svk-fish oil [Fish Oil] 1,200 mg PO DAILY 06/24/18 06/24/18 History Exam Vital signs: Vital Signs 06/25/18 16:00 06/25/18 16:46 06/25/18 20:00 Temperature 97.6 F 97.8 F Pulse Rate 103 H 101 H 102 H Respiratory Rate 15 16 22 Blood Pressure 123/60 97/54 L Pulse Oximetry 90 L 95 06/25/18 20:36 06/26/18 00:00 06/26/18 03:32 Temperature 97.2 F L Pulse Rate 100 H 99 H 76 Respiratory Rate 18 20 14 Blood Pressure 93/51 L Pulse Oximetry 95 91 L 06/26/18 04:00 06/26/18 08:00 06/26/18 09:03 Temperature 97.4 F L 97.6 F Pulse Rate 96 H 92 H 101 H Respiratory Rate 22 16 16 Blood Pressure 103/53 L 96/62 L Pulse Oximetry 95 91 L 93 L Intake & Output 06/25/18 06/26/18 06/26/18 18:59 06:59 18:59 Intake Total 810 / 810 1350 / 1350 100 / 100 Balance 810 / 810 1350 / 1350 100 / 100 Weight 46 kg Intake: IV 810 / 810 1350 / 1350 100 / 100 NS Inj 1,000 ML @ 75 mls/hr IV. 710 / 710 1000 / 1000 CONT .[id number] [facility] Rx#:[id number] Azithromycin Inj 500 MG In NS 250 / 250 Inj 250 ML @ 250 mls/hr IV.SIG Q24H [facility] Rx#:[id number] Maxipime Inj 1,000 MG In NS Inj 100 / 100 100 / 100 100 / 100 100 ML @ 200 mls/hr IV.SIG Q12H [facility] Rx#:[id number] Narrative: GENERAL: Thin built patient, not in acute distress SKIN: Cool and dry, no generalized rash HEAD: Atraumatic. Normocephalic. No temporal or scalp tenderness. EYES: Pupils equal round and reactive. Scleral icterus. No injection or drainage. No petechia ENT: Nothing abnormal detected NECK: Trachea midline. Supple, nontender, no meningeal signs. CARDIOVASCULAR: HS audible. RESPIRATORY: wheezing bilaterally, occ creps. GASTROINTESTINAL: Abdomen soft nontender. MUSCULOSKELETAL: Extremities without clubbing, cyanosis. NEUROLOGICAL: Alert oriented 3. Nonfocal. Psych cooperative IV line sites ok. Results - Labs CBC & Chem 7: 06/27/18 05:23 06/26/18 05:00 Labs: Laboratory Results - last 24 hr 06/25/18 06/25/18 06/26/18 17:14 19:35 05:00 WBC 21.9 H RBC 3.56 L Hgb 11.5 L Hct 35.6 MCV 100.0 MCH 32.4 MCHC 32.5 RDW 13.3 Plt Count 271 MPV 8.2 Prelim Diff (Auto) Slide review pending Neut % (Auto) 94.0 H Lymph % (Auto) 2.6 L [place] % (Auto) 3.4 Eos % (Auto) 0.0 Baso % (Auto) 0.0 Neut # (Auto) 20.6 H Lymph # (Auto) 0.6 L [place] # (Auto) 0.8 Eos # (Auto) 0.0 Baso # (Auto) 0.0 WBC Differential Manual diff final Seg Neuts % (Manual) 84 H Band Neuts % (Manual) 13 H Lymphocytes % (Manual) 1 L Monocytes % (Manual) 2 Abs Neuts (Manual) 21.2 H Differential Comment . Platelet Estimate Normal Platelet Morphology Normal Sodium Potassium Chloride Carbon Dioxide Anion Gap BUN Creatinine Estimated GFR POC Glucose 201 H 163 H Random Glucose Calcium 06/26/18 06/26/18 05:00 07:36 WBC RBC Hgb Hct MCV MCH MCHC RDW Plt Count MPV Prelim Diff (Auto) Neut % (Auto) Lymph % (Auto) [place] % (Auto) Eos % (Auto) Baso % (Auto) Neut # (Auto) Lymph # (Auto) [place] # (Auto) Eos # (Auto) Baso # (Auto) WBC Differential Seg Neuts % (Manual) Band Neuts % (Manual) Lymphocytes % (Manual) Monocytes % (Manual) Abs Neuts (Manual) Differential Comment Platelet Estimate Platelet Morphology Sodium 144 Potassium 4.0 Chloride 111 H Carbon Dioxide 27.7 Anion Gap 5 BUN 45 H Creatinine 0.84 Estimated GFR 64 L POC Glucose 128 H Random Glucose 124 H Calcium 8.3 L - Imaging Impressions Chest CT 06/25/18 00:00 CONCLUSION: There is a mass in right middle lobe could be malignant or possibly posttreatment change with a separate spiculated mass right upper lobe anteromedial suspicious for underlying malignancy. Additional parenchymal infiltrates are seen bilaterally may represent pneumonia. Assessment and Plan - Plan Possible CAP vs Post obstructive pneumonia. Leucocytosis infection vs steroids. Appears to have increased since steroids added. Clinically stable. Lung cancer s.p radiation +/- chemoRx. Recs: DC Cefepime IV Dc Azithro Start Unasyn IV (covers anaerobes for post obstructive pneumonia) Recommend treating pneumonia if clinically improving repeat imaging in 2 weeks. Follow up with Pulmonology and possibly Oncology if goals of care remain aggressive and this is cancerous and persistent on repeat imaging. Follow cultures Follow clinical course. crescencio prather patient.
[2018-06-26] MEDS: Ampicillin/Sulbactam Inj 1,500 MG in Sodium Chloride 0.9% Inj 100 ML IV.SIG SCH ×2 (16:35→20:26)
[2018-06-26] MEDS: Sod Chloride 0.9% Inj 1,000 ML IV.CONT SCH (20:24)
[2018-06-26] MEDS ORDERED: Gadobutrol PF 7.5 MMOL/7.5 ML Vial (for RAD) IV.SIG ONE (21:52)
--- NOTE | 2018-06-26 22:48 | MR ---
EXAM DATE: 06/26/2018 10:09 PM EST AGE/SEX: 88 years / Female INDICATIONS: Altered mental status. CLINICAL DATA: This is the patient's initial encounter. Patient reports that signs and symptoms have been present for 1 day and indicates a pain score of 3/10. MEDICAL/SURGICAL HISTORY: Carcinoma, lung. Hypertension. Diverticulosis. Carotid endarterecto my. COMPARISON: No prior exams available for comparison. TECHNIQUE: Multiplanar, multisequence examination of the brain was performed without and with 4.50 ml Gadavist (gadobutrol) contrast as a single exam dose. FINDINGS: There is an old right temporal stroke with some encephalomalacia and adjacent chronic white matter ch anges. Mild ex vacuo expansion of the right lateral ventricle. There is no evidence of intracranial hemorrhage or mass. Nothing to suggest acute infarction. No abno rmal parenchymal contrast enhancement identified. Chronic benign appearing white matter signal changes elsewhere. Minimal layering fluid in the maxilla ry antra. CONCLUSION: No acute intercranial findings. Electronically signed by: Luis Forrester MD Board Certified Radiologist 06/26/2018 10:46 PM EST
[2018-06-27] MEDS: Sod Chloride 0.9% Inj 1,000 ML IV.CONT SCH ×2 (00:35→16:36)
[2018-06-27] MEDS: Ampicillin/Sulbactam Inj 1,500 MG in Sodium Chloride 0.9% Inj 100 ML IV.SIG SCH ×4 (02:29→20:22)
[2018-06-27] MEDS: MethylPREDNISolone Sod Succinate Inj 40 MG/ML Vial IV.PUSH SCH ×3 (06:05→22:38)
[2018-06-27 06:17] LABS: Hematocrit 35.4 % (35.0-46.0); Hemoglobin 11.6 gm/dL (11.6-15.3); Mean Corpuscular HGB Conc 32.8 % (32.0-36.0); Mean Corpuscular Hemoglobin 32.6 pg (27.0-34.0); Mean Corpuscular Volume 99.5 fL (80.0-100.0); Mean Platelet Volume 8.2 fL (7.0-11.0); Platelet Count 306 th/mm3 (150-450); Red Blood Count 3.55 mil/mm3 (4.00-5.30); Red Cell Distribution Width 13.8 % (11.6-17.2); White Blood Count 23.9 th/mm3 (4.0-11.0)
[2018-06-27 07:25] LABS: Lymphocytes 1 % (9-44); Myelocytes 2 % (0-0); Platelet Estimate Normal (Normal); Platelet Morphology Normal (Normal)
[2018-06-27] MEDS: Insulin NovoLOG Aspart Correctional Sugar Inj SQ SCH ×4 (09:44→21:28)
[2018-06-27] MEDS: Docusate Sodium 100 MG Capsule PO SCH ×2 (09:45→20:22)
--- NOTE | 2018-06-27 12:30 | P.PN ---
Subjective Interval history: Patient denies any shortness of breath at rest with oxygen in place. She has a moist cough but has not produced much sputum. Was out of bed in chair. Ambulated a short distance with physical therapy but became short of breath. Has not had a bowel movement since admission. Oral intake is fair. Receiving nutritional supplements. Glucose levels are elevated but being covered with sliding scale of insulin. She remains afebrile. Blood pressure variable. Antihypertensive medication on hold. Active Medications Generic Name Dose Route Start Last Admin Trade Name Freq PRN Reason Stop Dose Admin Acetaminophen 650 mg 06/24/18 22:08 Tylenol PO Q4H PRN Temp > 100.4 Al Hydroxide/Mg Hydroxide 30 ml 06/24/18 22:08 Milk Of Magnesia Liq PO Q12H PRN Mild Constipation Albuterol 1 ampul 06/24/18 22:30 06/27/18 08:49 Duoneb Neb (Ally) NEB 1 ampul Q6HR NEB ALLY Administration Alprazolam 0.25 mg 06/25/18 10:15 Xanax PO Q8H PRN ANXIETY AND/OR AGITATION Aspirin 81 mg 06/25/18 09:00 06/27/18 09:45 Ecotrin PO 81 mg DAILY ALLY Administration Bisacodyl 10 mg 06/24/18 22:08 Dulcolax Supp RECTAL DAILY PRN SEVERE CONSITIPATION Dextrose 50 ml 06/25/18 09:56 D50w Vial IV.PUSH UNSCH PRN PER HYPOGLYCEMIA PROTOCOL Docusate Sodium 100 mg 06/25/18 10:30 06/27/18 09:45 Colace PO 100 mg BID ALLY Administration Glucagon 1 mg 06/25/18 09:56 Glucagon Inj OTHER PRN PRN for Hypoglycemia Protocol Sodium Chloride 1,000 mls @ 75 mls/hr 06/24/18 22:15 06/27/18 10:48 Ns Inj IV.CONT 75 mls/hr .[id number] ALLY Infusion Ampicillin Sodium/Sulbactam 100 mls @ 200 mls/hr 06/26/18 15:00 06/27/18 10: 48 Sodium 1,500 mg/ Sodium IV.SIG Infused Chloride Q6H ALLY Infusion Insulin Aspart 0 unit 06/25/18 12:00 06/27/18 09:44 Novolog Insulin Correctional Sugar Inj SQ Not Given ACHS ALLY Protocol Methylprednisolone Sodium Succinate 40 mg 06/25/18 06:00 06/27/18 06:05 Solumedrol Inj IV.PUSH 40 mg Q8HR ALLY Administration Pravastatin Sodium 80 mg 06/25/18 18:00 06/26/18 18:23 Pravachol PO 80 mg QPM ALLY Administration Sennosides 17.2 mg 06/24/18 22:08 Senokot PO Q12H PRN Moderate Constipation Sodium Chloride 2 ml 06/25/18 09:00 06/27/18 09:45 Ns Flush IV.FLUSH Not Given BID ALLY Sodium Chloride 2 ml 06/24/18 22:08 Ns Flush IV.FLUSH PRN PRN FLUSH AFTER USING IV ACCESS Physical Exam Vital signs: Vital Signs 06/26/18 16:00 06/26/18 16:39 06/26/18 19:56 Temperature 98.1 F Pulse Rate 101 H 109 H 105 H Respiratory Rate 18 18 18 Blood Pressure 122/55 L Pulse Oximetry 90 L 93 L 06/26/18 20:00 06/26/18 20:16 06/26/18 23:54 Temperature 97.1 F L 97.2 F L Pulse Rate 117 H 104 H 92 H Respiratory Rate 20 20 Blood Pressure 105/56 L 116/58 L Pulse Oximetry 93 L 96 06/27/18 04:00 06/27/18 04:10 06/27/18 07:00 Temperature 97.3 F L Pulse Rate 95 H 86 Respiratory Rate 19 16 Blood Pressure 124/56 L Pulse Oximetry 94 L 92 L 90 L 06/27/18 08:00 06/27/18 08:50 Temperature 97.7 F Pulse Rate 109 H 86 Respiratory Rate 20 15 Blood Pressure 146/65 H Pulse Oximetry 92 L Intake & Output 06/26/18 06/27/18 06/27/18 18:59 06:59 18:59 Intake Total 600 / 600 1500 / 1500 600 / 600 Balance 600 / 600 1500 / 1500 600 / 600 Weight 101 lb 6.602 oz Intake: IV 600 / 600 800 / 800 600 / 600 NS Inj 1,000 ML @ 75 mls/hr IV. 400 / 400 600 / 600 500 / 500 CONT .[id number] [facility] Rx#:[id number] Unasyn Inj 1,500 MG In NS Inj 100 / 100 200 / 200 100 / 100 100 ML @ 200 mls/hr IV.SIG Q6H ALLY Rx#:[id number] Maxipime Inj 1,000 MG In NS Inj 100 / 100 100 ML @ 200 mls/hr IV.SIG Q12H ALLY Rx#:[id number] Oral 700 / 700 Other: # Voids 3 - Constitutional no acute distress - Routine Neck Exam Present: supple Comments: No lymphadenopathy or JVD. Trachea midline - Routine Respiratory Exam Comments: Clear to auscultation with mildly diminished air exchange on left. Right sided expiratory wheezes. Moderately severe reduced air exchange. No rales. Scattered upper airway rhonchi. - Routine Abdominal Exam Comments: Soft, nontender, nondistended with bowel sounds present - Routine Extremities Exam Comments: No edema. No calf tenderness or Homans sign - Routine Neurological Exam Patient is awake and alert. Oriented to person and place but not to time. No lateralizing deficits. She does have significant short-term memory deficits which are new. Results - Labs CBC & Chem 7: 06/27/18 05:23 06/26/18 05:00 Laboratory Results - last 24 hr 06/26/18 06/26/18 06/26/18 13:16 17:39 20:23 WBC RBC Hgb Hct MCV MCH MCHC RDW Plt Count MPV Prelim Diff (Auto) WBC Differential Seg Neuts % (Manual) Band Neuts % (Manual) Lymphocytes % (Manual) Myelocytes % (Man) Abs Neuts (Manual) Differential Comment Platelet Estimate Platelet Morphology POC Glucose 178 H 178 H 143 H 06/27/18 06/27/18 06/27/18 05:23 08:11 11:24 WBC 23.9 H RBC 3.55 L Hgb 11.6 Hct 35.4 MCV 99.5 MCH 32.6 MCHC 32.8 RDW 13.8 Plt Count 306 MPV 8.2 Prelim Diff (Auto) Manual diff required WBC Differential Manual diff final Seg Neuts % (Manual) 85 H Band Neuts % (Manual) 12 H Lymphocytes % (Manual) 1 L Myelocytes % (Man) 2 H Abs Neuts (Manual) 23.7 H Differential Comment . Platelet Estimate Normal Platelet Morphology Normal POC Glucose 126 H 152 H Microbiology 06/24/18 18:48 Blood - Peripheral Aerobic Blood Culture - Preliminary No growth in 3 days 06/24/18 18:48 Blood - Peripheral Anaerobic Blood Culture - Preliminary No growth in 3 days 06/24/18 18:53 Blood - Peripheral Aerobic Blood Culture - Preliminary No growth in 3 days 06/24/18 18:53 Blood - Peripheral Anaerobic Blood Culture - Preliminary No growth in 3 days 06/25/18 11:05 Sputum - Expectorated Sputum Gram Stain - Final 06/25/18 11:05 Sputum - Expectorated Sputum Sputum Culture - Final Heavy growth normal respiratory chuck 06/25/18 18:45 Urine - Clean Catch Urine Streptococcus pneumoniae Antigen ( M - Final Presumptive negative for streptococcus pneumoniae antigen, suggesting no current or recent infection. Infection due to Streptococcus pneumoniae cannot be ruled out since the antigen present in the sample may be below the detection limit of the test. 06/25/18 18:45 Urine - Clean Catch Urine Legionella Antigen - Final Presumptive negative for Legionella pneumophila serogroup 1 antigen in urine, suggesting no recent or recurrent infection. Infection due to Legionella cannot be ruled out since other serogroups and species may cause disease, antigen may not be present in urine in early infection, and the level of antigen present in the urine may be below the detection limit of the test. - Imaging Impressions Head MRI 06/26/18 00:00 CONCLUSION: No acute intercranial findings. Assessment and Plan - Assessment (1) Pneumonia Code(s): J18.9 - Pneumonia, unspecified organism Status: Acute Plan: Patient continues to receive IV antibiotics in the form of Unasyn. Appreciate infectious disease consultation. Examination reveals significant right-sided congestion with wheezing. Continue with nebulizer treatments, IV steroids and incentive spirometry. CT scan reveals possible mass in the right lung. Pneumonia can be community- acquired pneumonia versus postobstructive pneumonia. Will consult pulmonology for assistance with further evaluation and treatment. (2) COPD with acute exacerbation Code(s): J44.1 - Chronic obstructive pulmonary disease with (acute) exacerbation Status: Acute Plan: Continue with steroids and nebulizer treatments. Continue with supplemental oxygen and wean as tolerated (3) Personal history of malignant neoplasm of lung Code(s): Z85.118 - Personal history of other malignant neoplasm of bronchus and lung Status: Chronic Plan: CT scan is suspicious for recurrent malignancy. I discussed the findings on the CT scan with the patient again today. She expressed understanding. Will need further evaluation after pneumonia has improved. (4) Hypertension Code(s): I10 - Essential (primary) hypertension Status: Chronic Plan: Blood pressure is now elevated. Resume losartan (5) Hyperlipidemia Code(s): E78.5 - Hyperlipidemia, unspecified Status: Acute Plan: Continue statin therapy (6) Altered mental status Code(s): R41.82 - Altered mental status, unspecified Status: Acute Plan: MRI of the brain does not reveal any acute findings or metastatic disease. Memory deficits and confusion likely due to delirium. (7) Carotid stenosis Code(s): I65.29 - Occlusion and stenosis of unspecified carotid artery Status : Chronic Plan: The patient has a history of high-grade carotid stenosis which was recently identified by CTA. She will continue on aspirin therapy. Plan was for vascular surgery consultation but will need to wait until patient is medically improved. (8) Hyperglycemia Code(s): R73.9 - Hyperglycemia, unspecified Status: Acute Plan: Blood sugars are elevated. Patient has a history of impaired fasting glucose blood glucose levels are higher due to use of steroids and acute illness. Receiving sliding scale insulin as needed. - Plan Discussed Condition With: I discussed patient's condition with her healthcare surrogate, Sunshine Durand, at telephone. She is aware of the patient's diagnosis and the possibility of recurrent malignancy. She is currently out of town and will not be back in town for 2-3 weeks. I will continue to be in contact by telephone. (1) Pneumonia Qualifiers: Pneumonia type: due to unspecified organism Laterality: right Lung location : unspecified part of lung Qualified Code(s): J18.9 - Pneumonia, unspecified organism (4) Hypertension Qualifiers: Hypertension type: essential hypertension Qualified Code(s): I10 - Essential (primary) hypertension (5) Hyperlipidemia Qualifiers: Hyperlipidemia type: mixed hyperlipidemia Qualified Code(s): E78.2 - Mixed hyperlipidemia (6) Altered mental status Qualifiers: Altered mental status type: delirium Qualified Code(s): R41.0 - Disorientation, unspecified
--- NOTE | 2018-06-27 13:03 | P.PNID ---
Subjective Remarks: is a 88 y/o CM with PMHx of chronic smoking, active smoker, Past history of Lung cancer s/p treatment at [facility] (radiation plus/- chemotherapy) in 2010. She was reportedly in remission until recently when her CXRs were reported as abnormal in the right side of imaging.She had a PET scan which was abnormal as well. She reports she has been told she has COPD but is not on home oxygen. She reports being active until Feb 2018 and plays golf. She had right shoulder bursitis due to which she slowed down. Upon discussion with she has lost some weight over last few months but her appetite seems ok. 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 She was last seen by Oncology at [facility] possibly in 2012. She denies any cough with expectoration, Chest pain. She denies any fever or night sweats. she denies exposure to any sick people. ID consulted for evaluation and Mment of Pneumonia. Overnight events reviewed. No fever No rash No diarrhea c/o wet cough still short of breath On Oxygen (not on home oxygen) Antibiotics: Unasyn IV Lines: Lines ok Past Medical History: reviewed Allergies/Adverse Reactions: Allergies No Known Allergies Allergy (Verified 06/24/18 19:06) Objective Vital Signs 06/26/18 16:00 06/26/18 16:39 06/26/18 19:56 Temperature 98.1 F Pulse Rate 101 H 109 H 105 H Respiratory Rate 18 18 18 Blood Pressure 122/55 L Pulse Oximetry 90 L 93 L 06/26/18 20:00 06/26/18 20:16 06/26/18 23:54 Temperature 97.1 F L 97.2 F L Pulse Rate 117 H 104 H 92 H Respiratory Rate 20 20 Blood Pressure 105/56 L 116/58 L Pulse Oximetry 93 L 96 06/27/18 04:00 06/27/18 04:10 06/27/18 07:00 Temperature 97.3 F L Pulse Rate 95 H 86 Respiratory Rate 19 16 Blood Pressure 124/56 L Pulse Oximetry 94 L 92 L 90 L 06/27/18 08:00 06/27/18 08:50 06/27/18 12:00 Temperature 97.7 F 98.0 F Pulse Rate 109 H 86 109 H Respiratory Rate 20 15 20 Blood Pressure 146/65 H 143/62 H Pulse Oximetry 92 L 97 Intake & Output 06/26/18 06/27/18 06/27/18 18:59 06:59 18:59 Intake Total 600 / 600 1500 / 1500 600 / 600 Balance 600 / 600 1500 / 1500 600 / 600 Weight 46 kg Intake: IV 600 / 600 800 / 800 600 / 600 NS Inj 1,000 ML @ 75 mls/hr IV. 400 / 400 600 / 600 500 / 500 CONT .[id number] [facility] Rx#:[id number] Unasyn Inj 1,500 MG In NS Inj 100 / 100 200 / 200 100 / 100 100 ML @ 200 mls/hr IV.SIG Q6H [facility] Rx#:[id number] Maxipime Inj 1,000 MG In NS Inj 100 / 100 100 ML @ 200 mls/hr IV.SIG Q12H [facility] Rx#:[id number] Oral 700 / 700 Other: # Voids 3 06/24/18 18:48 Blood - Peripheral Aerobic Blood Culture - Preliminary No growth in 3 days 06/24/18 18:48 Blood - Peripheral Anaerobic Blood Culture - Preliminary No growth in 3 days 06/24/18 18:53 Blood - Peripheral Aerobic Blood Culture - Preliminary No growth in 3 days 06/24/18 18:53 Blood - Peripheral Anaerobic Blood Culture - Preliminary No growth in 3 days 06/25/18 11:05 Sputum - Expectorated Sputum Gram Stain - Final 06/25/18 11:05 Sputum - Expectorated Sputum Sputum Culture - Final Heavy growth normal respiratory chuck 06/25/18 18:45 Urine - Clean Catch Urine Streptococcus pneumoniae Antigen ( M - Final Presumptive negative for streptococcus pneumoniae antigen, suggesting no current or recent infection. Infection due to Streptococcus pneumoniae cannot be ruled out since the antigen present in the sample may be below the detection limit of the test. 06/25/18 18:45 Urine - Clean Catch Urine Legionella Antigen - Final Presumptive negative for Legionella pneumophila serogroup 1 antigen in urine, suggesting no recent or recurrent infection. Infection due to Legionella cannot be ruled out since other serogroups and species may cause disease, antigen may not be present in urine in early infection, and the level of antigen present in the urine may be below the detection limit of the test. Lab - Hematology Results 06/26/18 06/27/18 05:00 05:23 WBC 21.9 H 23.9 H RBC 3.56 L 3.55 L Hgb 11.5 L 11.6 Hct 35.6 35.4 MCV 100.0 99.5 MCH 32.4 32.6 MCHC 32.5 32.8 RDW 13.3 13.8 Plt Count 271 306 MPV 8.2 8.2 Prelim Diff (Auto) Slide review pending Manual diff required Neut % (Auto) 94.0 H Lymph % (Auto) 2.6 L [place] % (Auto) 3.4 Eos % (Auto) 0.0 Baso % (Auto) 0.0 Neut # (Auto) 20.6 H Lymph # (Auto) 0.6 L [place] # (Auto) 0.8 Eos # (Auto) 0.0 Baso # (Auto) 0.0 WBC Differential Manual diff final Manual diff final Seg Neuts % (Manual) 84 H 85 H Band Neuts % (Manual) 13 H 12 H Lymphocytes % (Manual) 1 L 1 L Monocytes % (Manual) 2 Myelocytes % (Man) 2 H Abs Neuts (Manual) 21.2 H 23.7 H Differential Comment . . Platelet Estimate Normal Normal Platelet Morphology Normal Normal Lab - Chemistry Results 06/25/18 06/25/18 06/26/18 17:14 19:35 05:00 Sodium 144 Potassium 4.0 Chloride 111 H Carbon Dioxide 27.7 Anion Gap 5 BUN 45 H Creatinine 0.84 Estimated GFR 64 L POC Glucose 201 H 163 H Random Glucose 124 H Calcium 8.3 L 06/26/18 06/26/18 06/26/18 07:36 13:16 17:39 Sodium Potassium Chloride Carbon Dioxide Anion Gap BUN Creatinine Estimated GFR POC Glucose 128 H 178 H 178 H Random Glucose Calcium 06/26/18 06/27/18 06/27/18 20:23 08:11 11:24 Sodium Potassium Chloride Carbon Dioxide Anion Gap BUN Creatinine Estimated GFR POC Glucose 143 H 126 H 152 H Random Glucose Calcium Imaging: ITS Impressions Chest X-Ray 06/24/18 18:37 CONCLUSION: Volume loss and moderate severity patchy opacity in the right lung is nonspecific. May represent chronic lung disease/scarring. An acute component is also possible. Mild patchy opacity at the left lung base. Chest CT 06/25/18 00:00 CONCLUSION: There is a mass in right middle lobe could be malignant or possibly posttreatment change with a separate spiculated mass right upper lobe anteromedial suspicious for underlying malignancy. Additional parenchymal infiltrates are seen bilaterally may represent pneumonia. Head MRI 06/26/18 00:00 CONCLUSION: No acute intercranial findings. Physical Exam: GENERAL: Thin built patient, not in acute distress SKIN: Cool and dry, no generalized rash HEAD: Atraumatic. Normocephalic. No temporal or scalp tenderness. EYES: Pupils equal round and reactive. Scleral icterus. No injection or drainage. No petechia ENT: Nothing abnormal detected NECK: Trachea midline. Supple, nontender, no meningeal signs. CARDIOVASCULAR: HS audible. RESPIRATORY: wheezing bilaterally, occ creps. GASTROINTESTINAL: Abdomen soft nontender. MUSCULOSKELETAL: Extremities without clubbing, cyanosis. NEUROLOGICAL: Alert oriented 3. Nonfocal. Psych cooperative IV line sites ok. Assessment and Plan - Plan Possible CAP vs Post obstructive pneumonia. Leucocytosis infection vs steroids. Appears to have increased since steroids added. Clinically stable. Lung cancer s.p radiation +/- chemoRx. Recs: Continue Unasyn IV (covers anaerobes for post obstructive pneumonia) Agree with Pulm consult and bronchoscopy alfonzo if patient agreeable to plan. Follow cultures Follow clinical course. crescencio prather patient.
--- NOTE | 2018-06-27 14:22 | MB ---
cc: Anton Metz MD, Jason R MD DATE: 06/27/2018 HISTORY OF PRESENT ILLNESS: Ms. Perez is an 88-year-old white female well known to Dr. Turner, who is cared for her for years, who presented with hypoxemia, confusion, pulmonary infiltrates, particularly on the right, and underlying emphysema. She also had a lung cancer treated at [facility] about 5 years ago for which she received SBRT. She does not recall recent scanning, but her history is a little faulty due to some memory issues. In any event, on presentation, she was found to have an elevated white count, temperature, and probable pneumonia in the right lung with exacerbation of COPD. She was very hypoxic and has not previously required oxygen therapy. Her regimen at home, did not include specific bronchodilators and she actually played golf up until 02/2018 two or three times a week with a 9-hole golf club. She is independent, has been managing her own affairs, but admits she has slowed down a bit the last couple of months. She does not eat a lot, but appetite really has not changed. She is not dropping weight dramatically. She has had no chest pain or hemoptysis. She has very little recollection of what led up to the illness and she does not actually know how she got to the hospital. An MRI was unremarkable of her brain. She did have a CT scan on 06/25/2018 which reveals a right mid to lower lobe infiltrate, possible underlying mass, and another nodular density in the right upper lobe peripherally of unclear significance. Some or all of this could be within the radiation portal, we do not have those records. PAST MEDICAL HISTORY: She had a stroke years ago and does have atherosclerotic vascular disease, hypertension, hyperlipidemia, history of anxiety, benign colon polyps. The lung cancer mentioned in 2013 for which she had radiation therapy. She had a carotid endarterectomy and she has had cataracts removed. MEDICATIONS: Reviewed in the EMR. ALLERGIES: NONE KNOWN. SOCIAL HISTORY: She has been for several years. Lives alone, manages her own affairs until recently. Rarely drinks alcohol. Smoked for about 50 years, a pack per day and admits that she continues to smoke 3-4 cigarettes a day now. No family here local. PHYSICAL EXAMINATION: GENERAL: This is a frail, elderly white female, a little confused, but very cooperative, in no distress, afebrile. VITAL SIGNS: Blood pressure is 140/60, pulse is 90, respirations are 18, and her O2 saturation on 3 liters is 97%. HEENT: Sclerae pale, anicteric. NECK: Veins are not distended. LUNGS: Minimal chest congestion, right greater than left with scattered wheezes. HEART: Regular rhythm. No harsh murmur. No audible S3. EXTREMITIES: No peripheral edema or cyanosis. No clubbing. LABORATORY DATA: White count is 23,000, was trending down, back up now, possibly due to steroids. Hemoglobin is 11.6. BUN is 37 with a creatinine of 0.9. DISCUSSION: Ms. Perez presented with probable pneumonia, exacerbation of chronic obstructive pulmonary disease, hypoxemia, and confusion. She is feeling better. Clinically, she is improved. Infectious disease saw her and she is currently on Unasyn for the pneumonia, her nebulized aerosol treatments and IV corticosteroids. Reviewing her CT scan, it certainly is impossible to exclude the possibility of recurrent or new primary lung cancer, particularly without old films for comparison. However, at present, I think she is too ill to consider any further interventions and it is not urgent that be done. I agree with Dr. Turner and Dr. Morgan's approach at present to treat the pneumonia, the underlying COPD, stabilize the situation and within the next several weeks, if she is doing better, repeat the CT scan and see what if any further interventions would be warranted. When I discussed possible lung biopsies in the future, she actually seemed inclined not to pursue that even if it was cancer, but as I explained to her today that can be addressed at a future date. Further diagnostic and/or therapeutic intervention will depend on her ongoing clinical course R. MD BARBIE Mccray/micheline , 01:55 PM , 02:04 PM
[2018-06-28] MEDS: Ampicillin/Sulbactam Inj 1,500 MG in Sodium Chloride 0.9% Inj 100 ML IV.SIG SCH ×4 (02:33→22:44)
[2018-06-28] MEDS: MethylPREDNISolone Sod Succinate Inj 40 MG/ML Vial IV.PUSH SCH ×3 (05:25→22:45)
[2018-06-28 06:05] LABS: Baso % (Auto) 0.1 % (0.0-2.0); Hematocrit 38.6 % (35.0-46.0); Hemoglobin 12.7 gm/dL (11.6-15.3); Lymph # (Auto) 0.6 th/mm3 (1.0-4.8); Lymph % (Auto) 3.1 % (9.0-44.0); Mean Corpuscular HGB Conc 32.7 % (32.0-36.0); Mean Corpuscular Hemoglobin 32.7 pg (27.0-34.0); Mean Platelet Volume 7.8 fL (7.0-11.0); Mono # (Auto) 0.7 th/mm3 (0.0-0.9); Mono % (Auto) 3.3 % (0.0-8.0); Neut % (Auto) 93.5 % (16.0-70.0); Platelet Count 321 th/mm3 (150-450); Red Blood Count 3.86 mil/mm3 (4.00-5.30); White Blood Count 20.3 th/mm3 (4.0-11.0)
[2018-06-28 06:36] LABS: Alanine Aminotransferase 31 U/L (10-53); Albumin 2.3 g/dL (3.4-5.0); Alkaline Phosphatase 84 U/L (45-117); Anion Gap 2 meq/L (5-15); Aspartate Aminotransferase 25 U/L (15-37); Blood Urea Nitrogen 28 mg/dL (7-18); Calcium 8.3 mg/dL (8.5-10.1); Carbon Dioxide 31.5 meq/L (21.0-32.0); Chloride 111 meq/L (98-107); Glomerular Filtration Rate 86 mL/min (>89); Glucose,Random 116 mg/dL (74-106); Potassium 5.5 meq/L (3.5-5.1); Sodium 144 meq/L (136-145); Total Protein 5.5 g/dL (6.4-8.2)
[2018-06-28 07:11] LABS: Lymphocytes 5 % (9-44); Metamyelocytes 1 % (0-1); Monocytes 1 % (0-8); Myelocytes 4 % (0-0); Platelet Estimate Normal (Normal)
[2018-06-28 07:12] LABS: Platelet Morphology Normal (Normal)
[2018-06-28] MEDS: Insulin NovoLOG Aspart Correctional Sugar Inj SQ SCH ×4 (08:05→22:46)
[2018-06-28] MEDS: Docusate Sodium 100 MG Capsule PO SCH ×2 (11:05→22:47)
--- NOTE | 2018-06-28 20:09 | P.PN ---
Subjective Interval history: The patient still has a moist cough but is not producing any sputum. Oxygen saturations have improved on 4 L/min per nasal cannula. She feels a little more energetic today. She was out of bed in chair. Large bowel movement overnight. Appetite is fair. Drinking nutritional supplements. Mental status has improved. Short-term memory deficits are improving. Active Medications Generic Name Dose Route Start Last Admin Trade Name Freq PRN Reason Stop Dose Admin Acetaminophen 650 mg 06/24/18 22:08 Tylenol PO Q4H PRN Temp > 100.4 Al Hydroxide/Mg Hydroxide 30 ml 06/24/18 22:08 Milk Of Magnesia Liq PO Q12H PRN Mild Constipation Albuterol 1 ampul 06/24/18 22:30 06/28/18 16:16 Duoneb Neb (Ally) NEB Not Given Q6HR NEB ALLY Alprazolam 0.25 mg 06/25/18 10:15 06/27/18 13:38 Xanax PO 0.25 mg Q8H PRN Administration ANXIETY AND/OR AGITATION Aspirin 81 mg 06/25/18 09:00 06/28/18 11:05 Ecotrin PO 81 mg DAILY ALLY Administration Bisacodyl 10 mg 06/24/18 22:08 Dulcolax Supp RECTAL DAILY PRN SEVERE CONSITIPATION Dextrose 50 ml 06/25/18 09:56 D50w Vial IV.PUSH UNSCH PRN PER HYPOGLYCEMIA PROTOCOL Docusate Sodium 100 mg 06/25/18 10:30 06/28/18 11:05 Colace PO 100 mg BID ALLY Administration Glucagon 1 mg 06/25/18 09:56 Glucagon Inj OTHER PRN PRN for Hypoglycemia Protocol Ampicillin Sodium/Sulbactam 100 mls @ 200 mls/hr 06/26/18 15:00 06/28/18 17: 21 Sodium 1,500 mg/ Sodium IV.SIG Infused Chloride Q6H ALLY Infusion Insulin Aspart 0 unit 06/25/18 12:00 06/28/18 17:21 Novolog Insulin Correctional Sugar Inj SQ Not Given ACHS ALLY Protocol Methylprednisolone Sodium Succinate 40 mg 06/28/18 21:00 Solumedrol Inj IV.PUSH Q12HR ALLY Pravastatin Sodium 80 mg 06/25/18 18:00 06/28/18 17:21 Pravachol PO 80 mg QPM ALLY Administration Sennosides 17.2 mg 06/24/18 22:08 Senokot PO Q12H PRN Moderate Constipation Sodium Chloride 2 ml 06/25/18 09:00 06/28/18 11:05 Ns Flush IV.FLUSH 2 ml BID ALLY Administration Sodium Chloride 2 ml 06/24/18 22:08 Ns Flush IV.FLUSH PRN PRN FLUSH AFTER USING IV ACCESS Physical Exam Vital signs: Vital Signs 06/27/18 21:06 06/27/18 23:53 06/28/18 03:37 Temperature 97.4 F L Pulse Rate 90 91 H Respiratory Rate 18 17 20 Blood Pressure 126/58 L Pulse Oximetry 98 06/28/18 03:39 06/28/18 04:00 06/28/18 07:00 Temperature 97.3 F L Pulse Rate 96 H Respiratory Rate 17 Blood Pressure 141/65 H Pulse Oximetry 97 99 98 06/28/18 08:00 06/28/18 09:28 06/28/18 12:00 Temperature 98.0 F 98.0 F Pulse Rate 103 H 100 H 113 H Respiratory Rate 19 16 19 Blood Pressure 144/65 H 143/65 H Pulse Oximetry 97 95 06/28/18 15:45 Temperature 97.8 F Pulse Rate 106 H Respiratory Rate 19 Blood Pressure 133/67 Pulse Oximetry 97 Intake & Output 06/28/18 06/28/18 06/29/18 06:59 18:59 06:59 Intake Total 200 / 200 680 / 680 Balance 200 / 200 680 / 680 Intake: IV 200 / 200 200 / 200 Unasyn Inj 1,500 MG In NS Inj 200 / 200 200 / 200 100 ML @ 200 mls/hr IV.SIG Q6H [facility] Rx#:[id number] Oral 480 / 480 Other: # Voids 4 # Bowel Movements 1 - Constitutional no acute distress - Routine Neck Exam Present: supple Comments: No lymphadenopathy or JVD. Trachea midline. - Routine Respiratory Exam Comments: Left chest clear to auscultation. Right chest reveals scattered rhonchi and diminished air exchange. No rales. - Routine Cardiovascular Exam Comments: Regular rate and rhythm with 2/6 high-pitched systolic murmur at left upper sternal border - Routine Abdominal Exam Comments: Soft, nontender, nondistended with active bowel sounds - Routine Extremities Exam Comments: No edema or calf tenderness. No Homans sign. Results - Labs CBC & Chem 7: 06/28/18 04:46 06/28/18 04:46 Laboratory Results - last 24 hr 06/27/18 06/28/18 06/28/18 21:09 04:46 04:46 WBC 20.3 H RBC 3.86 L Hgb 12.7 Hct 38.6 MCV 100.0 MCH 32.7 MCHC 32.7 RDW 14.0 Plt Count 321 MPV 7.8 Prelim Diff (Auto) Slide review pending Neut % (Auto) 93.5 H Lymph % (Auto) 3.1 L [place] % (Auto) 3.3 Eos % (Auto) 0.0 Baso % (Auto) 0.1 Neut # (Auto) 19.0 H Lymph # (Auto) 0.6 L [place] # (Auto) 0.7 Eos # (Auto) 0.0 Baso # (Auto) 0.0 WBC Differential Manual diff final Seg Neuts % (Manual) 82 H Band Neuts % (Manual) 7 H Lymphocytes % (Manual) 5 L Monocytes % (Manual) 1 Metamyelocytes % (Man) 1 Myelocytes % (Man) 4 H Abs Neuts (Manual) 19.1 H Differential Comment . Platelet Estimate Normal Platelet Morphology Normal Sodium 144 Potassium 5.5 H D Chloride 111 H Carbon Dioxide 31.5 Anion Gap 2 L BUN 28 H Creatinine 0.65 Estimated GFR 86 L POC Glucose 201 H Random Glucose 116 H Calcium 8.3 L Total Bilirubin 0.2 AST 25 ALT 31 Alkaline Phosphatase 84 Total Protein 5.5 L D Albumin 2.3 L 06/28/18 06/28/18 06/28/18 08:10 11:09 16:45 WBC RBC Hgb Hct MCV MCH MCHC RDW Plt Count MPV Prelim Diff (Auto) Neut % (Auto) Lymph % (Auto) [place] % (Auto) Eos % (Auto) Baso % (Auto) Neut # (Auto) Lymph # (Auto) [place] # (Auto) Eos # (Auto) Baso # (Auto) WBC Differential Seg Neuts % (Manual) Band Neuts % (Manual) Lymphocytes % (Manual) Monocytes % (Manual) Metamyelocytes % (Man) Myelocytes % (Man) Abs Neuts (Manual) Differential Comment Platelet Estimate Platelet Morphology Sodium Potassium Chloride Carbon Dioxide Anion Gap BUN Creatinine Estimated GFR POC Glucose 119 H 119 H 100 Random Glucose Calcium Total Bilirubin AST ALT Alkaline Phosphatase Total Protein Albumin Microbiology 06/24/18 18:48 Blood - Peripheral Aerobic Blood Culture - Preliminary No growth in 4 days 06/24/18 18:48 Blood - Peripheral Anaerobic Blood Culture - Preliminary No growth in 4 days 06/24/18 18:53 Blood - Peripheral Aerobic Blood Culture - Preliminary No growth in 4 days 06/24/18 18:53 Blood - Peripheral Anaerobic Blood Culture - Preliminary No growth in 4 days Assessment and Plan - Assessment (1) Pneumonia Code(s): J18.9 - Pneumonia, unspecified organism Status: Acute Plan: Respiratory status has improved somewhat. Will reduce oxygen to 3 L/min per nasal cannula. Monitor oxygen saturations. Continue with IV antibiotics. IV antibiotics being managed by infectious disease. There is a possibility of a postobstructive pneumonia. The plan at this point is to treat the acute pneumonia and consider further evaluation on an outpatient basis once the pneumonia has improved. Appreciate pulmonary consultation. (2) COPD with acute exacerbation Code(s): J44.1 - Chronic obstructive pulmonary disease with (acute) exacerbation Status: Acute Plan: Respiratory status is improving slowly. Decrease methylprednisolone to 40 mg every 12 hours and continue nebulizer treatments. Continue with supplemental oxygen and wean as tolerated (3) Personal history of malignant neoplasm of lung Code(s): Z85.118 - Personal history of other malignant neoplasm of bronchus and lung Status: Chronic Plan: CT scan is suspicious for recurrent malignancy. Patient is aware of the findings on the CT scan. Plan is to treat acute pneumonia and perform follow- up CT scan as an outpatient. At that point, patient can decide if she wishes to pursue further evaluation and treatment. (4) Hypertension Code(s): I10 - Essential (primary) hypertension Status: Chronic Plan: Blood pressure is now elevated. Resume losartan (5) Hyperlipidemia Code(s): E78.5 - Hyperlipidemia, unspecified Status: Acute Plan: Continue statin therapy (6) Altered mental status Code(s): R41.82 - Altered mental status, unspecified Status: Acute Plan: Delirium is clearing. Mental status improving. (7) Carotid stenosis Code(s): I65.29 - Occlusion and stenosis of unspecified carotid artery Status : Chronic Plan: The patient has a history of high-grade carotid stenosis which was recently identified by CTA. She will continue on aspirin therapy. Plan was for vascular surgery consultation but will need to wait until patient is medically improved. (8) Hyperglycemia Code(s): R73.9 - Hyperglycemia, unspecified Status: Acute Plan: Blood glucose levels are improving with reduced doses of steroids. Continue to follow BGM's and cover with sliding scale of insulin if needed. - Plan Discharge Planning: The patient lives alone at home. She has no local family. She will be unable to care for herself and her current physical state due to generalized weakness from her acute illness. She needs usp facility placement for progressive rehabilitation. I have discussed this with her and she agrees. I have placed a case management consultation for arrangements for usp facility placement. First choice is [facility] and second choice is [facility]. - Attending Attestation I will be out of town from June until Tuesday, July 042018. [facility] hospitalists will be covering my inpatients. (1) Pneumonia Qualifiers: Pneumonia type: due to unspecified organism Laterality: right Lung location : unspecified part of lung Qualified Code(s): J18.9 - Pneumonia, unspecified organism (4) Hypertension Qualifiers: Hypertension type: essential hypertension Qualified Code(s): I10 - Essential (primary) hypertension (5) Hyperlipidemia Qualifiers: Hyperlipidemia type: mixed hyperlipidemia Qualified Code(s): E78.2 - Mixed hyperlipidemia (6) Altered mental status Qualifiers: Altered mental status type: delirium Qualified Code(s): R41.0 - Disorientation, unspecified
[2018-06-29] MEDS: Ampicillin/Sulbactam Inj 1,500 MG in Sodium Chloride 0.9% Inj 100 ML IV.SIG SCH ×3 (03:54→18:39)
[2018-06-29] MEDS: Insulin NovoLOG Aspart Correctional Sugar Inj SQ SCH ×4 (08:55→21:43)
[2018-06-29] MEDS: MethylPREDNISolone Sod Succinate Inj 40 MG/ML Vial IV.PUSH SCH (08:56)
[2018-06-29] MEDS: Docusate Sodium 100 MG Capsule PO SCH ×2 (08:56→21:37)
--- NOTE | 2018-06-29 12:47 | P.PNID ---
Subjective Remarks: is a 88 y/o CM with PMHx of chronic smoking, active smoker, Past history of Lung cancer s/p treatment at [facility] (radiation plus/- chemotherapy) in 2010. She was reportedly in remission until recently when her CXRs were reported as abnormal in the right side of imaging.She had a PET scan which was abnormal as well. She reports she has been told she has COPD but is not on home oxygen. She reports being active until Feb 2018 and plays golf. She had right shoulder bursitis due to which she slowed down. Upon discussion with she has lost some weight over last few months but her appetite seems ok. She does not have a local program attendant or Oncologist. She was last seen by Oncology at [facility] possibly in 2012. She denies any cough with expectoration, Chest pain. She denies any fever or night sweats. she denies exposure to any sick people. ID consulted for evaluation and Mment of Pneumonia. Overnight events reviewed. No fever No rash No diarrhea c/o wet cough still short of breath On Oxygen (not on home oxygen) Antibiotics: Unasyn IV Lines: Lines ok Past Medical History: reviewed Allergies/Adverse Reactions: Allergies No Known Allergies Allergy (Verified 06/24/18 19:06) Objective Vital Signs 06/28/18 15:45 06/28/18 20:00 06/28/18 20:19 Temperature 97.8 F 97.1 F L Pulse Rate 106 H 105 H 100 H Respiratory Rate 19 18 17 Blood Pressure 133/67 155/74 H Pulse Oximetry 97 96 92 L 06/29/18 00:00 06/29/18 04:00 06/29/18 08:00 Temperature 97.2 F L 97.2 F L 97.4 F L Pulse Rate 99 H 100 H 96 H Respiratory Rate 19 19 16 Blood Pressure 149/67 H 149/67 H 156/74 H Pulse Oximetry 93 L 97 99 Intake & Output 06/28/18 06/29/18 06/29/18 18:59 06:59 18:59 Intake Total 680 / 680 800 / 800 100 / 100 Balance 680 / 680 800 / 800 100 / 100 Weight 46.1 kg Intake: IV 200 / 200 200 / 200 100 / 100 Unasyn Inj 1,500 MG In NS Inj 200 / 200 200 / 200 100 / 100 100 ML @ 200 mls/hr IV.SIG Q6H [facility] Rx#:[id number] Oral 480 / 480 600 / 600 Other: # Voids 4 2 Date of Last Bowel Movement 06/28/18 # Bowel Movements 1 06/24/18 18:48 Blood - Peripheral Aerobic Blood Culture - Final No growth in 5 days 06/24/18 18:48 Blood - Peripheral Anaerobic Blood Culture - Final No growth in 5 days 06/24/18 18:53 Blood - Peripheral Aerobic Blood Culture - Final No growth in 5 days 06/24/18 18:53 Blood - Peripheral Anaerobic Blood Culture - Final No growth in 5 days 06/25/18 11:05 Sputum - Expectorated Sputum Gram Stain - Final 06/25/18 11:05 Sputum - Expectorated Sputum Sputum Culture - Final Heavy growth normal respiratory chuck 06/25/18 18:45 Urine - Clean Catch Urine Streptococcus pneumoniae Antigen ( M - Final Presumptive negative for streptococcus pneumoniae antigen, suggesting no current or recent infection. Infection due to Streptococcus pneumoniae cannot be ruled out since the antigen present in the sample may be below the detection limit of the test. 06/25/18 18:45 Urine - Clean Catch Urine Legionella Antigen - Final Presumptive negative for Legionella pneumophila serogroup 1 antigen in urine, suggesting no recent or recurrent infection. Infection due to Legionella cannot be ruled out since other serogroups and species may cause disease, antigen may not be present in urine in early infection, and the level of antigen present in the urine may be below the detection limit of the test. Lab - Hematology Results 06/28/18 04:46 WBC 20.3 H RBC 3.86 L Hgb 12.7 Hct 38.6 MCV 100.0 MCH 32.7 MCHC 32.7 RDW 14.0 Plt Count 321 MPV 7.8 Prelim Diff (Auto) Slide review pending Neut % (Auto) 93.5 H Lymph % (Auto) 3.1 L [place] % (Auto) 3.3 Eos % (Auto) 0.0 Baso % (Auto) 0.1 Neut # (Auto) 19.0 H Lymph # (Auto) 0.6 L [place] # (Auto) 0.7 Eos # (Auto) 0.0 Baso # (Auto) 0.0 WBC Differential Manual diff final Seg Neuts % (Manual) 82 H Band Neuts % (Manual) 7 H Lymphocytes % (Manual) 5 L Monocytes % (Manual) 1 Metamyelocytes % (Man) 1 Myelocytes % (Man) 4 H Abs Neuts (Manual) 19.1 H Differential Comment . Platelet Estimate Normal Platelet Morphology Normal Lab - Chemistry Results 06/27/18 06/27/18 06/28/18 17:17 21:09 04:46 Sodium 144 Potassium 5.5 H D Chloride 111 H Carbon Dioxide 31.5 Anion Gap 2 L BUN 28 H Creatinine 0.65 Estimated GFR 86 L POC Glucose 139 H 201 H Random Glucose 116 H Calcium 8.3 L Total Bilirubin 0.2 AST 25 ALT 31 Alkaline Phosphatase 84 Total Protein 5.5 L D Albumin 2.3 L 06/28/18 06/28/18 06/28/18 08:10 11:09 16:45 Sodium Potassium Chloride Carbon Dioxide Anion Gap BUN Creatinine Estimated GFR POC Glucose 119 H 119 H 100 Random Glucose Calcium Total Bilirubin AST ALT Alkaline Phosphatase Total Protein Albumin 06/28/18 06/29/18 06/29/18 21:45 08:54 11:48 Sodium Potassium Chloride Carbon Dioxide Anion Gap BUN Creatinine Estimated GFR POC Glucose 135 H 111 H 122 H Random Glucose Calcium Total Bilirubin AST ALT Alkaline Phosphatase Total Protein Albumin Imaging: ITS Impressions Chest X-Ray 06/24/18 18:37 CONCLUSION: Volume loss and moderate severity patchy opacity in the right lung is nonspecific. May represent chronic lung disease/scarring. An acute component is also possible. Mild patchy opacity at the left lung base. Chest CT 06/25/18 00:00 CONCLUSION: There is a mass in right middle lobe could be malignant or possibly posttreatment change with a separate spiculated mass right upper lobe anteromedial suspicious for underlying malignancy. Additional parenchymal infiltrates are seen bilaterally may represent pneumonia. Head MRI 06/26/18 00:00 CONCLUSION: No acute intercranial findings. Physical Exam: GENERAL: Thin built patient, not in acute distress SKIN: Cool and dry, no generalized rash HEAD: Atraumatic. Normocephalic. No temporal or scalp tenderness. EYES: Pupils equal round and reactive. Scleral icterus. No injection or drainage. No petechia ENT: Nothing abnormal detected NECK: Trachea midline. Supple, nontender, no meningeal signs. CARDIOVASCULAR: HS audible. RESPIRATORY: wheezing bilaterally, occ creps. GASTROINTESTINAL: Abdomen soft nontender. MUSCULOSKELETAL: Extremities without clubbing, cyanosis. NEUROLOGICAL: Alert oriented 3. Nonfocal. Psych cooperative IV line sites ok. Assessment and Plan - Plan Possible CAP vs Post obstructive pneumonia. Leucocytosis infection vs steroids. Appears to have increased since steroids added. Clinically stable. Lung cancer s.p radiation +/- chemoRx. Recs: Continue Unasyn IV (covers anaerobes for post obstructive pneumonia) Recommend treating pneumonia if clinically improving repeat imaging in 2 weeks. Follow up with Pulmonology and possibly Oncology if goals of care remain aggressive and this is cancerous and persistent on repeat imaging. Ok to transition to oral augmentin as it will help with fluid retention issues in this elderly. Also consider 2D ECHO to assess cardiac function if shortness of breath persists despite aggressive COPD management. Follow cultures Follow clinical course. dw patient.
--- NOTE | 2018-06-29 13:43 | XR ---
EXAM DATE: 06/29/2018 1:38 PM EST AGE/SEX: 88 years / Female INDICATIONS: Cough CLINICAL DATA: This is the patient's subsequent encounter. Patient reports that signs and symptoms h ave been present for 3 days and indicates a pain score of 0/10. MEDICAL/SURGICAL HISTORY: Chronic obstructive pulmonary disease. None. COMPARISON: [facility] [place], CHEST 1V SINGLE AP, 06/24/2018. . FINDINGS: Blunting of the costophrenic angles bilaterally similar to prior. Presumed fissural fluid in the mid right chest. Mild reticular infiltrate in the right base. Cardiac contours grossly unchanged. CONCLUSION: Persistent effusions and mild infiltrate at the right base Electronically signed by: Luis Forrester MD Board Certified Radiologist 06/29/2018 1:41 PM EST
--- NOTE | 2018-06-29 15:47 | P.PNIM ---
Subjective Interval history: Hospitalist coverage on 06/29 Patient seen and examined. continued to require supplemental oxygen and has non productive cough during my exam no subjective fever but felt cold for a short period previously during hospitalization tolerates Abx well and likely can go to PO explained that on discharge and repeat imaging that a decision regarding any abnormal findings may be addressed with biopsy IF she desires Physical Exam Vital signs: Vital Signs 06/28/18 15:45 06/28/18 20:00 06/28/18 20:19 Temperature 97.8 F 97.1 F L Pulse Rate 106 H 105 H 100 H Respiratory Rate 19 18 17 Blood Pressure 133/67 155/74 H Pulse Oximetry 97 96 92 L 06/29/18 00:00 06/29/18 04:00 06/29/18 08:00 Temperature 97.2 F L 97.2 F L 97.4 F L Pulse Rate 99 H 100 H 96 H Respiratory Rate 19 19 16 Blood Pressure 149/67 H 149/67 H 156/74 H Pulse Oximetry 93 L 97 99 06/29/18 12:00 06/29/18 15:18 Temperature 98 F Pulse Rate 97 H 104 H Respiratory Rate 16 14 Blood Pressure 159/77 H Pulse Oximetry 99 Intake & Output 06/28/18 06/29/18 06/29/18 18:59 06:59 18:59 Intake Total 680 / 680 800 / 800 100 / 100 Balance 680 / 680 800 / 800 100 / 100 Weight 46.1 kg Intake: IV 200 / 200 200 / 200 100 / 100 Unasyn Inj 1,500 MG In NS Inj 200 / 200 200 / 200 100 / 100 100 ML @ 200 mls/hr IV.SIG Q6H [facility] Rx#:[id number] Oral 480 / 480 600 / 600 Other: # Voids 4 2 Date of Last Bowel Movement 06/28/18 # Bowel Movements 1 gen: nad heent: eomi cvs: s1/s2 resp: no intercostal muscle use, not wheezing gi: soft, non tender, non distended, no guarding ext: no calf tenderness Results Labs CBC & Chem 7: 06/28/18 04:46 06/28/18 04:46 Labs: Microbiology 06/24/18 18:48 Blood - Peripheral Aerobic Blood Culture - Final No growth in 5 days 06/24/18 18:48 Blood - Peripheral Anaerobic Blood Culture - Final No growth in 5 days 06/24/18 18:53 Blood - Peripheral Aerobic Blood Culture - Final No growth in 5 days 06/24/18 18:53 Blood - Peripheral Anaerobic Blood Culture - Final No growth in 5 days Imaging Imaging: Impressions Chest X-Ray 06/29/18 00:00 CONCLUSION: Persistent effusions and mild infiltrate at the right base Assessment and Plan Plan Patient is a pleasant 88 year old female with extensive pmhx including past history of lung cancer previously in remision who presens for hypoxemia, SOB and found to have CT imaging with notable mass in right middle lobe suspicious for underlying malignancy causing a post obstructive pneumonia. Pulmonary: hx lung cancer, RIGHT middle lobe mass, post obstructive pneumonia, suspected COPD exacerbation - given patients previously history of lung Ca and recent findings, it is concerning for malignancy underlying a pneumonia - infectious disease consulted - continue current abx therapy - Blood cultures: NGTD - continue supplemental oxygen but titrate as tolerated - incentive spirometer - I agree with my consultants on this case. treat the pneumonia FIRST. Repeat imaging, if its the same without improvement then patient may discuss biopsy option with pulmonary and if anything suspicious is noted the patient may decide on goals from there with either oncology follow up or conservative approach given her advanced age and tolerance of undergoing what could be extensive therapy. - continue steroids and taper to prednsione 40mg qD d - monitor BG while on steroids and adjust regimen as we taper the steroids down to prevent hypoglycemia Neurology: AMS - MRI reviewed and normal - continue to monitor for acute changes. ABG to r/o retention if recurs Caridology: HTN/HLD - continue medications Code: DNR dispo: SNF in am as per CM discussion Progress Note: Quality VTE Deep Vein Thrombosis/Pulmonary Embolism Present on Admission: No
[2018-06-29] MEDS: Amoxicillin/Clavulanate 875/125 MG Tablet PO SCH (21:37)
[2018-06-29] MEDS: predniSONE 20 MG Tablet PO SCH (21:37)
[2018-06-30] MEDS: Insulin NovoLOG Aspart Correctional Sugar Inj SQ SCH ×4 (08:26→21:42)
[2018-06-30 08:46] LABS: Hematocrit 37.7 % (35.0-46.0); Hemoglobin 13.1 gm/dL (11.6-15.3); Mean Corpuscular HGB Conc 34.8 % (32.0-36.0); Mean Corpuscular Hemoglobin 33.6 pg (27.0-34.0); Mean Corpuscular Volume 96.7 fL (80.0-100.0); Mean Platelet Volume 7.5 fL (7.0-11.0); Platelet Count 301 th/mm3 (150-450); Red Cell Distribution Width 13.1 % (11.6-17.2); White Blood Count 15.8 th/mm3 (4.0-11.0)
[2018-06-30 09:05] LABS: Anion Gap -2 meq/L (5-15); Blood Urea Nitrogen 16 mg/dL (7-18); Calcium 8.3 mg/dL (8.5-10.1); Carbon Dioxide 41.5 meq/L (21.0-32.0); Chloride 99 meq/L (98-107); Glomerular Filtration Rate Greater Than 89 mL/min (>89); Glucose,Random 106 mg/dL (74-106); Magnesium 2.2 mg/dL (1.5-2.5); Potassium 5.4 meq/L (3.5-5.1); Sodium 139 meq/L (136-145)
[2018-06-30] MEDS: Amoxicillin/Clavulanate 875/125 MG Tablet PO SCH ×2 (09:12→21:40)
[2018-06-30] MEDS: predniSONE 20 MG Tablet PO SCH ×2 (09:13→21:40)
[2018-06-30] MEDS: Docusate Sodium 100 MG Capsule PO SCH ×2 (09:18→21:40)
[2018-06-30 16:31] LABS: Anion Gap 6 meq/L (5-15); Blood Urea Nitrogen 18 mg/dL (7-18); Calcium 9.1 mg/dL (8.5-10.1); Carbon Dioxide 37.5 meq/L (21.0-32.0); Chloride 94 meq/L (98-107); Glomerular Filtration Rate Greater Than 89 mL/min (>89); Glucose,Random 152 mg/dL (74-106); Potassium 5.3 meq/L (3.5-5.1); Sodium 137 meq/L (136-145)
[2018-06-30] MEDS ORDERED: Sodium Polystyrene Sulfonate/Sorbitol Liq 15 GM/60 ML UDC PO ONE (17:46)
[2018-06-30] MEDS ORDERED: acetaZOLAMIDE 250 MG TABLET PO ONE (17:46)
--- NOTE | 2018-06-30 17:49 | P.PNIM ---
Subjective Interval history: Very pleasant patient. No acute complaints at this time including shortness of breath. Patient reports occasional cough. Otherwise patient doing well Physical Exam Vital signs: Vital Signs 06/29/18 20:00 06/29/18 20:20 06/30/18 00:00 Temperature 98.6 F 97.3 F L Pulse Rate 107 H 101 H 104 H Respiratory Rate 16 16 16 Blood Pressure 133/72 154/69 H Pulse Oximetry 94 L 95 96 06/30/18 03:37 06/30/18 04:34 06/30/18 08:00 Temperature 98.0 F 97.6 F Pulse Rate 105 H 99 H 114 H Respiratory Rate 16 20 16 Blood Pressure 159/70 H 136/61 Pulse Oximetry 95 88 L 06/30/18 11:18 06/30/18 12:00 06/30/18 16:24 Temperature 98 F Pulse Rate 105 H 104 H 90 Respiratory Rate 21 16 18 Blood Pressure 149/66 H Pulse Oximetry 96 95 Intake & Output 06/29/18 06/30/18 06/30/18 18:59 06:59 18:59 Intake Total 850 / 850 580 / 580 Balance 850 / 850 580 / 580 Weight 46 kg Intake: IV 100 / 100 Unasyn Inj 1,500 MG In NS Inj 100 / 100 100 ML @ 200 mls/hr IV.SIG Q6H [facility] Rx#:[id number] Oral 750 / 750 580 / 580 Other: # Voids 3 4 Date of Last Bowel Movement 06/29/18 # Bowel Movements 1 0 general: No acute distress, frail appearing lady Cardiovascular: S1/S2. No murmur noted Respiratory: No intercostal muscle use, no wheezing noted, decreased breath sound at the base of the lung Gastro: Soft, nontender, nondistended, no guarding or rebound Results Labs CBC & Chem 7: 06/30/18 08:26 06/30/18 15:49 Assessment and Plan Plan Patient is a pleasant 88 year old female with extensive pmhx including past history of lung cancer previously in remision who presens for hypoxemia, SOB and found to have CT imaging with notable mass in right middle lobe suspicious for underlying malignancy causing a post obstructive pneumonia. Pulmonary: hx lung cancer, RIGHT middle lobe mass, post obstructive pneumonia, suspected COPD exacerbation - given patients previously history of lung Ca and recent findings, it is concerning for malignancy underlying a pneumonia - infectious disease consulted - continue current abx therapy - Blood cultures: NGTD - continue supplemental oxygen but titrate as tolerated - incentive spirometer - I agree with my consultants on this case. treat the pneumonia FIRST. Repeat imaging, if its the same without improvement then patient may discuss biopsy option with pulmonary and if anything suspicious is noted the patient may decide on goals from there with either oncology follow up or conservative approach given her advanced age and tolerance of undergoing what could be extensive therapy. - continue prednsione 40mg qD d - monitor BG while on steroids and adjust regimen as we taper the steroids down to prevent hypoglycemia Nephrology: Hyperkalemia Kayexalate 30 -Chemistry repeat in morning Beta blockers are also consideration for treatment of hyperkalemia. Neurology: AMS - MRI reviewed and normal - continue to monitor for acute changes. ABG to r/o retention if recurs Cardiology: HTN/HLD - continue medications Code: DNR dispo: SNF in am as per CM discussion. Placement still pending Progress Note: Quality VTE Deep Vein Thrombosis/Pulmonary Embolism Present on Admission: No
[2018-07-01] MEDS: Insulin NovoLOG Aspart Correctional Sugar Inj SQ SCH ×4 (08:09→20:36)
[2018-07-01] MEDS: Docusate Sodium 100 MG Capsule PO SCH ×2 (08:11→20:37)
[2018-07-01] MEDS: predniSONE 20 MG Tablet PO SCH ×2 (08:11→20:37)
[2018-07-01] MEDS: Amoxicillin/Clavulanate 875/125 MG Tablet PO SCH ×2 (08:11→20:37)
[2018-07-01 08:50] LABS: Hematocrit 43.7 % (35.0-46.0); Hemoglobin 14.4 gm/dL (11.6-15.3); Mean Corpuscular HGB Conc 32.9 % (32.0-36.0); Mean Corpuscular Hemoglobin 32.7 pg (27.0-34.0); Mean Corpuscular Volume 99.5 fL (80.0-100.0); Mean Platelet Volume 7.4 fL (7.0-11.0); Platelet Count 307 th/mm3 (150-450); Red Blood Count 4.39 mil/mm3 (4.00-5.30); Red Cell Distribution Width 13.3 % (11.6-17.2)
[2018-07-01 09:17] LABS: Calcium 9.1 mg/dL (8.5-10.1); Carbon Dioxide 38.7 meq/L (21.0-32.0); Magnesium 2.3 mg/dL (1.5-2.5); Potassium 4.7 meq/L (3.5-5.1)
--- NOTE | 2018-07-01 15:41 | P.PNIM ---
Subjective Interval history: continues to feel better although cough present no fever currently + tachycardia still using 3L nasal cannula. Physical Exam Vital signs: Vital Signs 06/30/18 16:24 06/30/18 20:00 06/30/18 20:26 Temperature 97.8 F Pulse Rate 90 111 H 75 Respiratory Rate 18 16 18 Blood Pressure 139/67 Pulse Oximetry 96 96 07/01/18 00:00 07/01/18 03:33 07/01/18 04:00 Temperature 97.8 F Pulse Rate 97 H 106 H 101 H Respiratory Rate 17 16 Blood Pressure 148/72 H Pulse Oximetry 96 07/01/18 04:11 07/01/18 07:00 07/01/18 08:00 Temperature 97.9 F 97.2 F L Pulse Rate 102 H 109 H Respiratory Rate 17 16 Blood Pressure 134/64 128/60 Pulse Oximetry 95 97 82 L 07/01/18 12:00 Temperature 98 F Pulse Rate 111 H Respiratory Rate 17 Blood Pressure 138/6 L Pulse Oximetry 94 L Intake & Output 06/30/18 07/01/18 07/01/18 18:59 06:59 18:59 Intake Total 140 / 140 580 / 580 240 / 240 Output Total 650 / 650 Balance 140 / 140 580 / 580 -410 / -410 Weight 46 kg Intake: Oral 140 / 140 580 / 580 240 / 240 Output: Urine 650 / 650 Other: # Voids 2 4 Date of Last Bowel Movement 06/29/18 06/30/18 gen: comfortable pulm: dec breath sound at lung base cvs: tachycardic. s1/s2 gi: soft, non tender, non distended, + BS ext: no edema Results Labs CBC & Chem 7: 07/01/18 08:01 07/01/18 08:01 Assessment and Plan Plan Patient is a pleasant 88 year old female with extensive pmhx including past history of lung cancer previously in remision who presens for hypoxemia, SOB and found to have CT imaging with notable mass in right middle lobe suspicious for underlying malignancy causing a post obstructive pneumonia. Pulmonary: hx lung cancer, RIGHT middle lobe mass, post obstructive pneumonia, suspected COPD exacerbation - given patients previously history of lung Ca and recent findings, it is concerning for malignancy underlying a pneumonia - infectious disease consulted - continue current abx therapy - Blood cultures: NGTD - continue supplemental oxygen but titrate as tolerated - incentive spirometer - I agree with my consultants on this case. treat the pneumonia FIRST. Repeat imaging, if its the same without improvement then patient may discuss biopsy option with pulmonary and if anything suspicious is noted the patient may decide on goals from there with either oncology follow up or conservative approach given her advanced age and tolerance of undergoing what could be extensive therapy. - continue prednisone 40mg qD d - monitor BG while on steroids and adjust regimen as we taper the steroids down to prevent hypoglycemia Nephrology: Hyperkalemia - resolved Neurology: AMS - MRI reviewed and normal - continue to monitor for acute changes. ABG to r/o retention if recurs Cardiology: HTN/HLD - continue medications Code: DNR dispo: SNF in am as per CM discussion. Placement still pending Progress Note: Quality VTE Deep Vein Thrombosis/Pulmonary Embolism Present on Admission: No
[2018-07-02 08:07] LABS: Hematocrit 38.1 % (35.0-46.0); Hemoglobin 12.9 gm/dL (11.6-15.3); Mean Corpuscular HGB Conc 33.9 % (32.0-36.0); Mean Corpuscular Hemoglobin 33.1 pg (27.0-34.0); Mean Corpuscular Volume 97.6 fL (80.0-100.0); Mean Platelet Volume 7.6 fL (7.0-11.0); Platelet Count 249 th/mm3 (150-450); Red Blood Count 3.91 mil/mm3 (4.00-5.30); Red Cell Distribution Width 13.2 % (11.6-17.2); White Blood Count 12.6 th/mm3 (4.0-11.0)
[2018-07-02] MEDS: Insulin NovoLOG Aspart Correctional Sugar Inj SQ SCH ×4 (08:09→20:34)
[2018-07-02 08:36] LABS: Carbon Dioxide 38.4 meq/L (21.0-32.0); Potassium 4.3 meq/L (3.5-5.1)
[2018-07-02] MEDS: Docusate Sodium 100 MG Capsule PO SCH ×2 (08:49→20:33)
[2018-07-02] MEDS: Amoxicillin/Clavulanate 875/125 MG Tablet PO SCH ×2 (08:49→20:33)
[2018-07-02] MEDS: predniSONE 20 MG Tablet PO SCH ×2 (08:50→20:33)
--- NOTE | 2018-07-02 13:31 | P.PNIM ---
Subjective Interval history: Without acute complaints of chest pain or shortness of breath Patient continues to have tachycardia which I suspect is secondary to her post obstructive pneumonia Patient denies any palpitations Patient denies any cough White blood cell count continues to improve and I believe patient will soon be ready for discharge Patient still remains on 3 L nasal cannula will attempt to continue to down titrate as her other vitals and labs stabilized Physical Exam Vital signs: Vital Signs 07/01/18 15:39 07/01/18 16:00 07/01/18 20:00 Temperature 98 F 97.7 F Pulse Rate 110 H 118 H 109 H Respiratory Rate 16 17 16 Blood Pressure 139/57 L 148/66 H Pulse Oximetry 96 94 L 07/01/18 21:45 07/02/18 00:00 07/02/18 03:50 Temperature 97.6 F Pulse Rate 101 H 109 H 107 H Respiratory Rate 19 18 18 Blood Pressure 140/58 L Pulse Oximetry 92 L 07/02/18 04:00 07/02/18 08:36 Temperature 97.9 F Pulse Rate 113 H 112 H Respiratory Rate 19 16 Blood Pressure 147/68 H Pulse Oximetry 95 93 L Intake & Output 07/01/18 07/02/18 07/02/18 18:59 06:59 18:59 Intake Total 740 / 740 720 / 720 Output Total 650 / 650 Balance 90 / 90 720 / 720 Weight 49.1 kg Intake: Oral 740 / 740 720 / 720 Output: Urine 650 / 650 Other: # Voids 4 # Urine Diapers 1 General: No acute distress HEENT: No tender submandibular or sublingual lymph nodes Cardiovascular: Tachycardia, S1/S2 Respiratory: Relatively clear anteriorly and posteriorly without intercostal muscle use or wheezing Gastroenterology: Soft, nontender, nondistended Extremity: No edema Results Labs CBC & Chem 7: 07/02/18 06:58 07/02/18 06:58 Assessment and Plan Plan Patient is a pleasant 88 year old female with extensive pmhx including past history of lung cancer previously in remision who presens for hypoxemia, SOB and found to have CT imaging with notable mass in right middle lobe suspicious for underlying malignancy causing a post obstructive pneumonia. Pulmonary: hx lung cancer, RIGHT middle lobe mass, post obstructive pneumonia, suspected COPD exacerbation - given patients previously history of lung Ca and recent findings, it is concerning for malignancy underlying a pneumonia - infectious disease consulted - continue current abx therapy w/ augmentin - Blood cultures: NGTD - continue supplemental oxygen but titrate as tolerated - incentive spirometer - I agree with my consultants on this case. treat the pneumonia FIRST. Repeat imaging, if its the same without improvement then patient may discuss biopsy option with pulmonary and if anything suspicious is noted the patient may decide on goals from there with either oncology follow up or conservative approach given her advanced age and tolerance of undergoing what could be extensive therapy. - continue prednisone 40mg qD d (06/29 -->) - monitor BG while on steroids and adjust regimen as we taper the steroids down to prevent hypoglycemia Nephrology: Hyperkalemia - resolved Neurology: AMS - MRI reviewed and normal - continue to monitor for acute changes. ABG to r/o retention if recurs Cardiology: HTN/HLD - continue medications Code: DNR dispo: SNF in am as per CM discussion. Placement still pending Progress Note: Quality VTE Deep Vein Thrombosis/Pulmonary Embolism Present on Admission: No
--- NOTE | 2018-07-02 16:16 | P.PNADD ---
Addendum to Inpatient Note Additional information: crescencio Blackmon Clinically improving slowly dw RN down to 1 L Oxygen today. Augmentin oral for few more days. Will sign off please call back if any change in clinical condition or questions.
[2018-07-03] MEDS: Insulin NovoLOG Aspart Correctional Sugar Inj SQ SCH ×2 (08:11→12:53)
[2018-07-03] MEDS: predniSONE 20 MG Tablet PO SCH (09:40)
[2018-07-03] MEDS: Docusate Sodium 100 MG Capsule PO SCH (09:40)
[2018-07-03] MEDS: Amoxicillin/Clavulanate 875/125 MG Tablet PO SCH (09:40)
--- NOTE | 2018-07-03 12:55 | P.DS ---
DS: Providers Date of admission: 06/24/18 21:09 Primary care physician: Claude Turner MD Consults: 06/26/18 08:55 Consult to Infectious Diseases Routine Consulting Provider: Susannah Morgan Reason for Consultation: 88 yo WF with pneumonia. Persistent leukocytosis despite antibiotics. Please assist with treatment Notified:: Service Spoke with:: PARVEEN Date Notified:: 06/26/18 Time Notified:: 09:08 Ordering Provider: CARITO 06/27/18 12:28 Consult to Pulmonology Routine Consulting Provider: Christian Metz Preferred Counselor Aide:: Christian Metz Reason for Consultation: 88-year-old white female with history of lung cancer and COPD. Status post treatment over 5 years ago. Now admitted with pneumonia, exacerbation of COPD and possible recurrence of lung cancer. Please assist with evaluation and treatment Notified:: Office Spoke with:: Tonia Date Notified:: 06/27/18 Time Notified:: 12:44 Ordering Provider: CARITO 06/29/18 05:27 HUB Only Consult Order Routine Consulting Provider: Issa Booth 06/29/18 08:33 HUB Only Consult Order Routine Consulting Provider: [employer] DS: Summary Patient is a very pleasant 88-year-old female with extensive past medical history including history of cancer who presented with shortness of breath. Patient was admitted with the following treatments and services were provided in her care. Patient received a CT of the chest on 06/25 which showed a mass in the right middle lobe which could be malignant or possible posttreatment change with a separate spiculated mass in the right upper lobe. Patient was also found to have elevated white blood cell count and is thought that patient may be suffering from a possible post obstructive pneumonia. While hospitalized patient was evaluated by pulmonary team and infectious disease. Patient was initially started on IV antibiotics and transition over to oral regimen for continued therapy. Discussions with patient at the bedside regarding possibility of malignancy resulted in patient not wanting to pursue any therapy at this time. It was determined in conjunction with the patient and pulmonary and infectious consultants that at this time most best to treat patient's infection and repeat imaging in approximately 2 weeks and based on the results of such imaging discussed with patient what she would like to do if anything at all. On 07/03 again this discussion was had with the patient the bedside and at this time patient continues to say that she does not want any aggressive measures and would prefer to receive therapy for suspected pneumonia with possible COPD exacerbation and discussed all options after that is completed. Case briefly reviewed with pulmonary team on 07/03 and they have cleared patient from their viewpoint with above-mentioned plan with outpatient follow-up with patient's doctor Yue once discharged to discuss any further treatment if the patient desires. Was evaluated by physical therapy with recommendation for PT at rehab. Patient has been cleared by infectious disease for discharge. Patient to complete 5 days of Augmentin oral and 5 days of prednisone outpatient. Supplemental oxygen as needed to maintain saturation greater than 92%. Time Spent with Patient Total time spent providing and/or coordinating discharge services: > 30 minutes Patient is a very pleasant 88-year-old female with extensive past medical history including history of cancer who presented with shortness of breath. Patient was admitted with the following treatments and services were provided in her care. Patient received a CT of the chest on 06/25 which showed a mass in the right middle lobe which could be malignant or possible posttreatment change with a separate spiculated mass in the right upper lobe. Patient was also found to have elevated white blood cell count and is thought that patient may be suffering from a possible post obstructive pneumonia. While hospitalized patient was evaluated by pulmonary team and infectious disease. Patient was initially started on IV antibiotics and transition over to oral regimen for continued therapy. Discussions with patient at the bedside regarding possibility of malignancy resulted in patient not wanting to pursue any therapy at this time. It was determined in conjunction with the patient and pulmonary and infectious consultants that at this time most best to treat patient's infection and repeat imaging in approximately 2 weeks and based on the results of such imaging discussed with patient what she would like to do if anything at all. On 07/03 again this discussion was had with the patient the bedside and at this time patient continues to say that she does not want any aggressive measures and would prefer to receive therapy for suspected pneumonia with possible COPD exacerbation and discussed all options after that is completed. Case briefly reviewed with pulmonary team on 07/03 and they have cleared patient from their viewpoint with above-mentioned plan with outpatient follow-up with patient's doctor Turner once discharged to discuss any further treatment if the patient desires. Was evaluated by physical therapy with recommendation for PT at rehab. Patient has been cleared by infectious disease for discharge. Patient to complete 5 days of Augmentin oral and 5 days of prednisone outpatient. Supplemental oxygen as needed to maintain saturation greater than 92%. Quality: VTE Deep Vein Thrombosis/Pulmonary Embolism Present on Admission: No Results Labs on day of discharge: Labs from last 24 hours 07/03/18 07/02/18 07/02/18 07:57 19:40 16:40 POC Glucose 105 143 H 113 H 07/02/18 12:00 POC Glucose 94 Impressions ITS Impressions Chest CT 06/25/18 00:00 CONCLUSION: There is a mass in right middle lobe could be malignant or possibly posttreatment change with a separate spiculated mass right upper lobe anteromedial suspicious for underlying malignancy. Additional parenchymal infiltrates are seen bilaterally may represent pneumonia. Head MRI 06/26/18 00:00 CONCLUSION: No acute intercranial findings. Chest X-Ray 06/29/18 00:00 CONCLUSION: Persistent effusions and mild infiltrate at the right base Discharge Plan Discharge Disposition Patient Disposition: 03 Discharge to SNF Discharge Condition Condition: Stable Discharge Order Discharge Orders: Discharge Order (Routine); Ordered 07/03/18 Ordered By: Issa Booth Discharge Details Anticipated Discharge Date: 07/03/18 Physicians Team ED Provider: Ruben Villalba Primary Care Provider: Claude Turner Attending Provider: Claude Turner Other Providers: Susannah Morgan ; Christian Metz ; Issa Booth ; [employer] Rxs /Orders / Referrals /Forms Prescriptions: New amoxicillin-pot clavulanate 875-125 mg Tablet 1 tab PO Q12HR 5 Days Qty: 10 RF: 0 prednisone 20 mg Tablet 20 mg PO DAILY 5 Days Qty: 5 RF: 0 Continue ibuprofen 200 mg Capsule 200 mg PO Q4-6H PRN (Reason: Pain) RF: 0 B-complex with vitamin C [Super B Complex-Vitamin C] Tablet 1 tab PO DAILY RF: 0 calcium citrate-vitamin D3 [Citracal + D Maximum] 315-250 mg-unit Tablet 2 tab PO DAILY RF: 0 [id number]-C-odilon-bosw [Osteo Bi-Flex Triple Strength] 750 mg-644 mg- 30 mg-1 mg Tablet 2 tab PO DAILY RF: 0 omega 7-zbd-pal-fish oil [Fish Oil] 1,000 mg (120 mg-180 mg) Capsule 1,200 mg PO DAILY RF: 0 biotin 5,000 mcg PO DAILY RF: 0 calcium carbonate-vitamin D3 [Calcium 600 + D(3)] 600 mg(1,500mg) -200 unit Tablet 1 tab PO BID RF: 0 aspirin [Aspir-81] 81 mg Tablet,Delayed Release (Dr/Ec) 1 tab PO DAILY RF: 0 simvastatin 40 mg Tablet 40 mg PO QPM RF: 0 alprazolam 0.25 mg Tablet 0.25 mg PO BID PRN (Reason: Anxiety) RF: 0 folic acid 1 mg Tablet 1 mg PO DAILY RF: 0 losartan 100 mg Tablet 100 mg PO DAILY RF: 0 cholecalciferol (vitamin D3) [Vitamin D3] 2,000 unit Tablet 2,000 unit PO DAILY RF: 0 denosumab [Prolia] 60 mg/mL Syringe 1 % subcut [id number] RF: 0 Referrals: Claude Turner MD [Primary Care Provider] - See Instructions (please complete 5 days of steroids and 5 days remaining augmentin follow up with PMD re: additional workup of CT imaging findings ) [facility] [Agency] - See Instructions Discharge Instructions Patient Printed Instructions: Prednisone (By mouth), Amoxicillin/Clavulanate Potassium (By mouth), Hypoxia (GEN), Pneumonia (GEN) Status ED Status: Left Department
== END 2018-07-03 15:47 | DRG 190 ==
LOC: NEPC 18:00 → NEDA 21:09 → N07 22:50
PROVIDERS: ADMIT Family Medicine; ATTEND Family Medicine
CPT/HCPCS: 70553; 71010; 71045; 71250; 80048; 80053; 82948; 82962; 83735; 85025; 85027; 87040; 87070; 87205; 87449; 90765; 90775; 93005; 94640; 94664; 94665; 96365; 96375; 97110; 97116; 97163; 99285; A9585; J0295; J0456; J0692; J1815; J2543; J2920; J7030; J7050; J7506; J7512